=== PATIENT | male | born 1985 | race Asian ===

== ENCOUNTER 2019-04-04 23:01 | Inpatient (IN) | payer SELFPAY ==
[~2019-04-04] VITALS: Ht 180.3 cm; Wt 84.9 kg
[2019-04-04] MEDS ORDERED: AUGMENTIN 875-1 EAC1 ORAL (23:08)
[2019-04-04 23:10] VITALS: BP 144/91
--- NOTE | 2019-04-04 23:29 | Emergency Room Report ---
History of Present Illness General Chief Complaint: Pain Source: Patient Present Illness HPI 34-year-old male no past medical history no surgical history presents with left ear swelling x1 week, patient was seen in outside urgent care, now with worsening pain, no fevers no chills no chest pain no shortness of breath patient presents for evaluation, no aggravating or alleviating factors, pain is described as sharp/achy moderate severity, constant Allergies: Coded Allergies: No Known Allergies (Unverified , 04/04/19) Patient History Past Medical History: see triage record Reviewed Nursing Documentation: PMH: Agreed; PSxH: Agreed Nursing Documentation-PMH Past Medical History: No Stated History Review of Systems All Other Systems: negative except mentioned in HPI Physical Exam Vital Signs Date Time Temp Pulse Resp B/P (MAP) Pulse Ox O2 Delivery O2 Flow Rate FiO2 04/04/19 23:03 98.8 104 14 144/91 (108) 97 Room Air Sp02 EP Interpretation: reviewed, normal General Appearance: well appearing, no apparent distress, alert Head: normocephalic, atraumatic Eyes: bilateral eye PERRL, bilateral eye EOMI ENT: uvula midline, moist mucus membranes, other - Patient with swelling of the lobule of the left ear, along the base, with tenderness Neck: supple, thyroid normal, supple/symm/no masses Respiratory: lungs clear, no respiratory distress, no retraction, no accessory muscle use Cardiovascular #1: normal peripheral pulses, no edema, no gallop, no murmur, tachycardia Gastrointestinal: non tender, soft, no guarding, no rebound Musculoskeletal: normal inspection Neurologic: alert, oriented x3 Psychiatric: mood/affect normal Skin: no rash, warm/dry Medical Decision Making Diagnostic Impression: Primary Impression: Facial abscess ER Course 34-year-old male presents with more left facial pain near the ear, concerning for abscess versus cellulitis versus mastoiditis we will start IV antibiotics, labs show a leukocytosis, patient is tachycardic Will admit patient Patient admitted to Dr. Villarreal Laboratory Tests Test 04/04/19 23:50 White Blood Count 11.1 K/UL (4.8-10.8) H Red Blood Count 5.15 M/UL (4.70-6.10) Hemoglobin 15.2 G/DL (14.2-18.0) Hematocrit 43.4 % (42.0-52.0) Mean Corpuscular Volume 84 FL (80-99) Mean Corpuscular Hemoglobin 29.4 PG (27.0-31.0) Mean Corpuscular Hemoglobin Concent 35.0 G/DL (32.0-36.0) Red Cell Distribution Width 11.0 % (11.6-14.8) L Platelet Count 201 K/UL (150-450) Mean Platelet Volume 6.6 FL (6.5-10.1) Neutrophils (%) (Auto) 70.7 % (45.0-75.0) Lymphocytes (%) (Auto) 19.8 % (20.0-45.0) L Monocytes (%) (Auto) 8.0 % (1.0-10.0) Eosinophils (%) (Auto) 0.9 % (0.0-3.0) Basophils (%) (Auto) 0.6 % (0.0-2.0) Sodium Level 145 MMOL/L (136-145) Potassium Level 3.6 MMOL/L (3.5-5.1) Chloride Level 109 MMOL/L (98-107) H Carbon Dioxide Level 31 MMOL/L (21-32) Anion Gap 5 mmol/L (5-15) Blood Urea Nitrogen 12 mg/dL (7-18) Creatinine 0.9 MG/DL (0.55-1.30) Estimate Glomerular Filtration Rate > 60 mL/min (>60) Glucose Level 113 MG/DL (74-106) H Lactic Acid Level 1.10 mmol/L (0.4-2.0) Calcium Level 8.9 MG/DL (8.5-10.1) Phosphorus Level 4.0 MG/DL (2.5-4.9) Magnesium Level 2.0 MG/DL (1.8-2.4) Total Bilirubin 1.1 MG/DL (0.2-1.0) H Direct Bilirubin 0.2 MG/DL (0.0-0.3) Aspartate Amino Transferase (AST) 14 U/L (15-37) L Alanine Aminotransferase (ALT) 24 U/L (12-78) Alkaline Phosphatase 61 U/L (46-116) Creatine Kinase MB 0.6 NG/ML (0.0-3.6) Total Protein 6.9 G/DL (6.4-8.2) Albumin 3.6 G/DL (3.4-5.0) Globulin 3.3 g/dL Albumin/Globulin Ratio 1.1 (1.0-2.7) EKG Diagnostic Results EKG Time: 23:28 EP Interpretation: NSR rate 95, QTc 414, no acute ST elevations, normal axis Chest X-Ray Diagnostic Results Chest X-Ray Diagnostic Results : Chest X-Ray Ordered: Yes # of Views/Limited/Complete: 1 View Indication: Other - preop EP Interpretation: Yes Interpretation: no consolidation, no effusion, no pneumothorax, no acute cardiopulmonary disease Impression: No acute disease Electronically Signed by: Vivek Bell MD CT/MRI/US Diagnostic Results CT/MRI/US Diagnostic Results : Impression Preliminary Findings Only See Final Report For Complete Findings CT MAXILLOFACIAL: Bone: No facial fracture. Soft tissues: Orbits/globes are intact. No hematoma. There is soft tissue thickening and edema/infection in the left periauricular region (close to the parotid gland but appears to be outside of the gland) with underlying superficial 2 cm cystic process/abscess. Mastoids: Clear. External auditory canal and middle ears are clear bilaterally. Radiologist: Gera Dunham MD Study ready at 00:44 and initial results transmitted at 01:27 Last Vital Signs Date Time Temp Pulse Resp B/P (MAP) Pulse Ox O2 Delivery O2 Flow Rate FiO2 04/04/19 23:03 98.8 104 14 144/91 (108) 97 Room Air Disposition: ADMITTED INPATIENT Condition: Stable Vivek Bell MD Apr 04, 2019 23:29
[2019-04-04] MEDS ORDERED: Piperacillin/Tazobactam 3.375 GM in NS 110 ML IVPB ONE (23:30)
[2019-04-04] MEDS ORDERED: Isovue-300 100ml vial INJ PRN ×2 (23:30)
[2019-04-05 00:07] LABS: BASOPHILS % (AUTO) 0.6 % (0.0-2.0); EOSINOPHILS % (AUTO) 0.9 % (0.0-3.0); HEMATOCRIT 43.4 % (42.0-52.0); HEMOGLOBIN 15.2 G/DL (14.2-18.0); LYMPHOCYTES % (AUTO) 19.8 % (20.0-45.0); MEAN CORPUSCULAR VOLUME 84 FL (80-99); NEUTROPHILS % (AUTO) 70.7 % (45.0-75.0); PLATELET COUNT 201 K/UL (150-450); RED BLOOD COUNT 5.15 M/UL (4.70-6.10); WHITE BLOOD COUNT 11.1 K/UL (4.8-10.8)
[2019-04-05 00:20] LABS: ANION GAP 5 mmol/L (5-15); BLOOD UREA NITROGEN 12 mg/dL (7-18); CALCIUM 8.9 MG/DL (8.5-10.1); CARBON DIOXIDE 31 MMOL/L (21-32); CHLORIDE 109 MMOL/L (98-107); CREATININE 0.9 MG/DL (0.55-1.30); POTASSIUM 3.6 MMOL/L (3.5-5.1); SODIUM 145 MMOL/L (136-145)
[2019-04-05 00:31] LABS: ALANINE AMINOTRANSFERASE 24 U/L (12-78); ALBUMIN 3.6 G/DL (3.4-5.0); ALBUMIN/GLOBULIN RATIO 1.1 (1.0-2.7); ALKALINE PHOSPHATASE 61 U/L (46-116); ASPARTATE AMINO TRANSFERASE 14 U/L (15-37); BILIRUBIN,TOTAL 1.1 MG/DL (0.2-1.0); CKMB 0.6 NG/ML (0.0-3.6)
[2019-04-05 00:35] LABS: BILIRUBIN,DIRECT 0.2 MG/DL (0.0-0.3)
--- NOTE | 2019-04-05 01:28 | Diagnostic Imaging Report ---
Indication: Reason For Exam: PAIN Technique: No IV contrast, reason not stated Spiral acquisitions obtained through the bilateral temporal bones Multiplanar and high-resolution reconstructions were generated. Total dose length product 2387.3 mGycm. CTDIvol(s) 43.85,43.85 mGy. Radiation dose was minimized using automated exposure control Comparison: none Findings: In the subcutaneous fat superficial to the left parotid gland, at the inferior aspect of the oracle and anterior/inferior to the external auditory canal, there is an area of soft tissue thickening. This demonstrates peripheral high attenuation. There is a central area of lower attenuation which measures approximately 1 cm in diameter. There is also soft tissue thickening extending into the inferior oracle on the left. Bilaterally, the external auditory canals, tympanic membranes, middle ear ossicles, mastoid antrum, inner ear structures, internal auditory canals, and mastoids are all unremarkable. There is slight irregularity to the left mandibular head, possibly on the basis of degenerative change or degenerative remodeling. There is bilateral ethmoid sinus mucosal thickening. A small mucous retention cyst or polyp is seen in the right maxillary sinus. Impression: Abnormality of the soft tissues superficial to the left parotid gland within the subcutaneous fat as described. Differential considerations include cellulitis with central abscess, infected cyst, less likely tumor. Evaluation is limited in the absence of IV contrast. Correlate with clinical findings This agrees with the preliminary interpretation provided overnight by [facility] teleradiology service. The CT scanner at [facility] is accredited by the [employer] and the scans are performed using protocols designed to limit radiation exposure to as low as reasonably achievable to attain images of sufficient resolution adequate for diagnostic evaluation.
[2019-04-05 02:02] VITALS: BP 137/90
[2019-04-05 04:00] VITALS: BP 137/85
[2019-04-05 07:02] LABS: BASOPHILS % (AUTO) 0.6 % (0.0-2.0); EOSINOPHILS % (AUTO) 0.8 % (0.0-3.0); HEMATOCRIT 41.2 % (42.0-52.0); HEMOGLOBIN 14.1 G/DL (14.2-18.0); LYMPHOCYTES % (AUTO) 17.5 % (20.0-45.0); MEAN CORPUSCULAR VOLUME 85 FL (80-99); MONOCYTES % (AUTO) 7.1 % (1.0-10.0); PLATELET COUNT 196 K/UL (150-450); RED BLOOD COUNT 4.85 M/UL (4.70-6.10); WHITE BLOOD COUNT 11.8 K/UL (4.8-10.8)
[2019-04-05 07:18] LABS: ANION GAP 8 mmol/L (5-15); BLOOD UREA NITROGEN 12 mg/dL (7-18); CALCIUM 8.8 MG/DL (8.5-10.1); CARBON DIOXIDE 27 MMOL/L (21-32); CHLORIDE 110 MMOL/L (98-107); CREATININE 0.9 MG/DL (0.55-1.30); SODIUM 145 MMOL/L (136-145)
[2019-04-05 08:00] VITALS: BP 100/58
[2019-04-05] MEDS: HYDROcodone/Acetamin 5/325 tab ORAL PRN ×3 (08:59→21:10)
[2019-04-05] MEDS: Vancomycin 1gm/D5W 275ml IVPB SCH ×4 (08:59→17:06)
--- NOTE | 2019-04-05 11:06 | Consultation ---
History of Present Illness General Date patient seen: Apr 05, 2019 Reason for Hospitalization: Pain Present Illness HPI This is a 34-year-old male otherwise healthy who presented to the emergency department at [facility] complaining of worsening left sided facial swelling and pain. States that he first noted discomfort/abnormality approximately few months ago but over the past 1 week is identified significant swelling tenderness and discomfort. Went to outside facility and was told to come the emergency room for evaluation. In emergency department identified to have low-grade fevers, leukocytosis, CT scan with left preauricular cellulitis. Surgery called to evaluate and assist with care. Patient seen, patient evaluated, chart reviewed Allergies: Coded Allergies: No Known Allergies (Unverified , 04/04/19) Medication History Scheduled Amoxicillin/Potassium Clav 875-125* (Augmentin 875-125 Tablet*), 1 TAB ORAL TWICE A DAY, (Reported) Patient History History Provided By: Patient, Medical Record, PMD Healthcare decision maker Resuscitation status Full Code Advanced Directive on File No Past Medical/Surgical History Past Medical/Surgical History: (1) Facial abscess (2) Mastoiditis Review of Systems Review of Symptoms General ROS: no weight loss or fever Psychological ROS: no depression or mood changes, no memory loss Ophthalmic ROS: no visual changes or eye irritation ENT ROS: no nasal congestion, hearing loss, dizziness Allergy and Immunology ROS: no allergic symptoms or urticaria Hematological and Lymphatic ROS: no swollen glands, unusual bleeding or bruising Endocrine ROS: no polyuria, polydipsia, weight changes, temperature intolerance Respiratory ROS: no cough, shortness of breath, or wheezing Cardiovascular ROS: no chest pain or dyspnea on exertion Gastrointestinal ROS: denies abdominal pain, no bright red blood in stool. Musculoskeletal ROS: no myalgias or arthralgias Neurological ROS: no TIA or stroke symptoms Dermatological ROS: no new or changing skin lesions, rashes or pruritis Physical Exam Physical Exam General appearance: alert, cooperative, no distress, appears stated age Head: Left-sided facial edema and erythema and tenderness, without obvious abnormality, atraumatic Eyes: conjunctivae/corneas clear. PERRL, EOM's intact. Fundi benign Throat: Lips, mucosa, and tongue normal. Teeth and gums normal Neck: supple, symmetrical, trachea midline, no adenopathy, thyroid: not enlarged, symmetric, no tenderness/mass/nodules, no carotid bruit and no JVD Lungs: clear to auscultation bilaterally Heart: regular rate and rhythm, S1, S2 normal, no murmur, click, rub or gallop Abdomen: soft, non-tender. Bowel sounds normal. No masses, no organomegaly Extremities: extremities normal, atraumatic, no cyanosis or edema Pulses: 2+ and symmetric Skin: Skin color, texture, turgor normal. No rashes or lesions Neurologic: Grossly normal Last 24 Hour Vital Signs Date Time Temp Pulse Resp B/P (MAP) Pulse Ox O2 Delivery O2 Flow Rate FiO2 04/05/19 09:29 99.5 04/05/19 09:00 Room Air 04/05/19 08:00 99.5 81 19 100/58 (72) 95 04/05/19 04:00 98.4 79 17 137/85 (102) 97 04/05/19 02:21 Room Air 04/05/19 02:02 98.6 85 16 137/90 (106) 97 04/05/19 01:45 98.8 78 14 144/91 97 Room Air 04/04/19 23:10 98.8 78 14 144/91 97 Room Air 04/04/19 23:03 98.8 104 14 144/91 (108) 97 Room Air Intake and Output 04/04/19 04/05/19 19:00 07:00 Intake Total 140 ml Balance 140 ml Intake IV Total 140 ml # Voids 1 Laboratory Tests Test 04/04/19 23:50 04/05/19 05:38 White Blood Count 11.1 K/UL (4.8-10.8) H 11.8 K/UL (4.8-10.8) H Red Blood Count 5.15 M/UL (4.70-6.10) 4.85 M/UL (4.70-6.10) Hemoglobin 15.2 G/DL (14.2-18.0) 14.1 G/DL (14.2-18.0) L Hematocrit 43.4 % (42.0-52.0) 41.2 % (42.0-52.0) L Mean Corpuscular Volume 84 FL (80-99) 85 FL (80-99) Mean Corpuscular Hemoglobin 29.4 PG (27.0-31.0) 29.2 PG (27.0-31.0) Mean Corpuscular Hemoglobin Concent 35.0 G/DL (32.0-36.0) 34.3 G/DL (32.0-36.0) Red Cell Distribution Width 11.0 % (11.6-14.8) L 11.0 % (11.6-14.8) L Platelet Count 201 K/UL (150-450) 196 K/UL (150-450) Mean Platelet Volume 6.6 FL (6.5-10.1) 7.7 FL (6.5-10.1) Neutrophils (%) (Auto) 70.7 % (45.0-75.0) 74.0 % (45.0-75.0) Lymphocytes (%) (Auto) 19.8 % (20.0-45.0) L 17.5 % (20.0-45.0) L Monocytes (%) (Auto) 8.0 % (1.0-10.0) 7.1 % (1.0-10.0) Eosinophils (%) (Auto) 0.9 % (0.0-3.0) 0.8 % (0.0-3.0) Basophils (%) (Auto) 0.6 % (0.0-2.0) 0.6 % (0.0-2.0) Sodium Level 145 MMOL/L (136-145) 145 MMOL/L (136-145) Potassium Level 3.6 MMOL/L (3.5-5.1) 4.0 MMOL/L (3.5-5.1) Chloride Level 109 MMOL/L (98-107) H 110 MMOL/L (98-107) H Carbon Dioxide Level 31 MMOL/L (21-32) 27 MMOL/L (21-32) Anion Gap 5 mmol/L (5-15) 8 mmol/L (5-15) Blood Urea Nitrogen 12 mg/dL (7-18) 12 mg/dL (7-18) Creatinine 0.9 MG/DL (0.55-1.30) 0.9 MG/DL (0.55-1.30) Estimat Glomerular Filtration Rate > 60 mL/min (>60) > 60 mL/min (>60) Glucose Level 113 MG/DL (74-106) H 101 MG/DL (74-106) Lactic Acid Level 1.10 mmol/L (0.4-2.0) Calcium Level 8.9 MG/DL (8.5-10.1) 8.8 MG/DL (8.5-10.1) Phosphorus Level 4.0 MG/DL (2.5-4.9) Magnesium Level 2.0 MG/DL (1.8-2.4) Total Bilirubin 1.1 MG/DL (0.2-1.0) H Direct Bilirubin 0.2 MG/DL (0.0-0.3) Aspartate Amino Transf (AST/SGOT) 14 U/L (15-37) L Alanine Aminotransferase (ALT/SGPT) 24 U/L (12-78) Alkaline Phosphatase 61 U/L (46-116) Creatine Kinase MB 0.6 NG/ML (0.0-3.6) Total Protein 6.9 G/DL (6.4-8.2) Albumin 3.6 G/DL (3.4-5.0) Globulin 3.3 g/dL Albumin/Globulin Ratio 1.1 (1.0-2.7) Height (Feet): 5 Height (Inches): 11.00 Weight (Pounds): 195 Medications Current Medications Medications (Trade) Dose Ordered Sig/Nikolai Route PRN Reason Start Time Stop Time Status Last Admin Dose Admin Acetaminophen (Tylenol) 650 mg Q4H PRN ORAL Mild Pain/Temp > 100.5 04/05/19 03:45 05/05/19 03:44 Acetaminophen/ Hydrocodone Bitart ([place] 5/325) 1 tab Q6H PRN ORAL For Pain 04/05/19 03:45 04/12/19 03:44 04/05/19 08:59 Iopamidol (Isovue-300 100ml) 100 ml NOW PRN INJ Radiology Procedure 04/04/19 23:30 04/06/19 23:21 Iopamidol (Isovue-300 100ml) 100 ml NOW PRN INJ Radiology Procedure 04/04/19 23:30 04/06/19 23:28 Sodium Chloride 1,000 ml @ 70 mls/hr [id number] IV 04/05/19 04:00 05/05/19 03:59 04/05/19 04:06 Vancomycin HCl (Vanco rx to dose) 1 ea DAILY PRN MISC Per rx protocol 04/05/19 07:30 05/05/19 07:29 Vancomycin HCl 1 gm/Dextrose 275 ml @ 183.708 mls/hr Q8H IVPB 04/05/19 09:00 04/10/19 08:59 04/05/19 08:59 Assessment/Plan Problem List: (1) Facial abscess Assessment & Plan: CT MAXILLOFACIAL: Bone: No facial fracture. Soft tissues: Orbits/globes are intact. No hematoma. There is soft tissue thickening and edema/infection in the left periauricular region (close to the parotid gland but appears to be outside of the gland) with underlying superficial 2 cm cystic process/abscess. Mastoids: Clear. External auditory canal and middle ears are clear bilaterally. As noted on the CT the auditory canal and the middle ear is clear bilaterally, the left preauricular region close to the parotid broadside of it has a superficial cystic process versus abscess. On examination patient with cellulitis in the left preauricular area that is tender but no drainage. Low- grade fevers and leukocytosis. No acute general surgery intervention recommended at this time Recommend IV antibiotics and warm compress If possible ENT evaluation Trend labs Thank you for allowing me to participate in patient's care will follow with recommendations ICD Codes: L02.01 - Cutaneous abscess of face SNOMED: 061591884 (2) Mastoiditis ICD Codes: H70.90 - Unspecified mastoiditis, unspecified ear SNOMED: [id number] Vu Murphy Apr 05, 2019 11:06
[2019-04-05 12:00] VITALS: BP 127/79
--- NOTE | 2019-04-05 15:03 | Diagnostic Imaging Report ---
. Indication: Cough Technique: One view of the chest Comparison: none Findings: Lungs and pleural spaces are clear. Heart size is normal. Incidentally noted is a right clavicular fracture deformity Impression: No acute process
[2019-04-05 16:00] VITALS: BP 133/58
--- NOTE | 2019-04-05 18:48 | Cardiology Report ---
APPROVED REPORT EKG Measurement Heart [id number] Normal sinus rhythm Normal ECG
[2019-04-05 20:00] VITALS: BP 122/72
--- NOTE | 2019-04-05 23:15 | Consultation ---
DATE OF CONSULTATION: 04/05/2019 INFECTIOUS DISEASE CONSULTATION CONSULTING PHYSICIAN: Tavon Stapleton M.D. PRIMARY ATTENDING PHYSICIAN: Daisy Villarreal M.D. REASON FOR CONSULT: Facial abscess and cellulitis. HISTORY OF PRESENT ILLNESS: This is a 34-year-old male, admitted yesterday complaining of pain and swelling on the left side of the face, mainly in the left ear. The patient also had subjective fever at home. The swelling is going on for one week, was seen in an outside urgent clinic for worsening. PAST MEDICAL HISTORY: Insignificant. PAST SURGICAL HISTORY: The patient also had no past surgical history. MEDICATIONS: Getting vancomycin. Got a dose of Zosyn in the ER, sodium chloride, and Victoria. ALLERGIES: No known drug allergies. SOCIAL HISTORY: Smokes half pack of cigarettes daily. Denies alcohol or IV drug abuse. Works in a factory. . [place] in origin. REVIEW OF SYSTEMS: Pain in the left ear and swelling of the left ear. No nausea. No vomiting. No difficulty swallowing. No tooth pain. No other symptoms. PHYSICAL EXAMINATION: VITAL SIGNS: Temperature 98.7, pulse 71, and blood pressure 127/79. GENERAL APPEARANCE: No acute distress. HEAD AND NECK: Burns conjunctivae. Has swelling of the left earlobe with an area of redness and tenderness in the posterior inferior ear lobe. No open wound and no discharge. HEART: Normal rate. LUNGS: Clear. ABDOMEN: Soft and nontender. EXTREMITIES: Has no edema. LABORATORY AND DIAGNOSTIC DATA: WBC 11.8, hemoglobin 14.1, hematocrit 41.2, and platelets 196,000. Sodium 145, potassium 4, chloride 110, bicarbonate 27, BUN 12, creatinine 0.9, and glucose is 101. CT scan of the internal auditory shows mastoids & auditory canal and middle ears are normal , superficial 2 cm abscess. IMPRESSION: Cutaneous abscess of ear. The patient has nicotine dependence. RECOMMENDATIONS: Continue IV vancomycin. Surgical evaluation for abscess. Check HIV status of the patient. At the end of my exam, I thank Dr. Villarreal for involving me in the care of this patient. Tavon Stapleton M.D. DR: MICHELE JOB#: [id number] CC: HECTOR
[2019-04-06] VITALS (7 sets, daily range): BP systolic 114–133; BP diastolic 60–83
[2019-04-06] MEDS: Vancomycin 1gm/D5W 275ml IVPB SCH ×2 (00:51)
--- NOTE | 2019-04-06 03:30 | History and Physical Report ---
DATE OF ADMISSION: 04/04/2019 HISTORY OF PRESENT ILLNESS: The patient is admitted with left facial abscess near the left ear, started on antibiotics per the outpatient treatment, admitted for inpatient IV antibiotics. The patient states it started about a week ago along the left ear, subsequently diagnosed with possible mastoiditis. The patient had some chills as well. PAST MEDICAL HISTORY: None. PAST SURGICAL HISTORY: None. SOCIAL HISTORY: History of smoking, history of marijuana, history of alcohol abuse. MEDICATIONS: None. FAMILY HISTORY: Noncontributory. REVIEW OF SYSTEMS: HEENT: Denies headaches. RESPIRATORY: Denies shortness of breath. Denies cough. CARDIOVASCULAR: Denies chest pain. GASTROINTESTINAL: Denies nausea, vomiting, diarrhea. EXTREMITIES: Denies any pain. CENTRAL NERVOUS SYSTEM: Denies any change in vision or speech pattern. Does have around the left ear, left facial side close to the ear, pain for about a week. PHYSICAL EXAMINATION: VITAL SIGNS: Temperature 98.2, pulse 78, and blood pressure 133/70. HEENT: PERRLA. The patient has edema, tender to touch around close to the left ear and face, behind the mastoid on the left, it is tender to touch and red and warm to touch. NECK: Supple. No lymphadenopathy. CHEST: Clear to auscultation. CARDIOVASCULAR: Regular rate and rhythm. No murmurs or extra sounds. GASTROINTESTINAL: Soft, nontender, nondistended. No organomegaly. EXTREMITIES: No edema. Moves all four extremities. NEUROLOGIC: Sensory is intact to touch. Reflexes equal on both sides. Moves all four extremities. LABORATORY DATA: Essentially normal. ASSESSMENT AND PLAN: Left ear infection, cellulitis/mastoiditis. I have asked Dr. Murphy and Dr. Tavon Stapleton to see the patient for IV antibiotics and possible beading as needed. Antibiotics per Dr. Tavon Stapleton. Daisy Villarreal M.D. DR: MARTINA JOB#: [id number] CC:
[2019-04-06 08:38] LABS: BASOPHILS % (AUTO) 0.6 % (0.0-2.0); EOSINOPHILS % (AUTO) 0.3 % (0.0-3.0); HEMATOCRIT 44.5 % (42.0-52.0); HEMOGLOBIN 15.1 G/DL (14.2-18.0); LYMPHOCYTES % (AUTO) 13.5 % (20.0-45.0); MEAN CORPUSCULAR VOLUME 85 FL (80-99); MONOCYTES % (AUTO) 5.2 % (1.0-10.0); NEUTROPHILS % (AUTO) 80.4 % (45.0-75.0); PLATELET COUNT 212 K/UL (150-450); RED BLOOD COUNT 5.22 M/UL (4.70-6.10); RED CELL DISTRIBUTION WIDTH 10.7 % (11.6-14.8); WHITE BLOOD COUNT 11.8 K/UL (4.8-10.8)
[2019-04-06 08:53] LABS: ANION GAP 10 mmol/L (5-15); BLOOD UREA NITROGEN 7 mg/dL (7-18); CARBON DIOXIDE 28 MMOL/L (21-32); CHLORIDE 105 MMOL/L (98-107); CREATININE 0.9 MG/DL (0.55-1.30); SODIUM 143 MMOL/L (136-145)
[2019-04-06] MEDS: HYDROcodone/Acetamin 5/325 tab ORAL PRN ×3 (09:39→23:57)
[2019-04-06] MEDS: Vancomycin 1.25gm/NS Premix IVPB SCH ×2 (10:10→21:46)
--- NOTE | 2019-04-06 12:17 | Infectious Diseases Prog Note ---
Assessment/Plan Assessment/Plan IMPRESSION: Cutaneous phegmons abscess of face near left ear. Facial cellulitis extending to upper neck nicotine dependence. RECOMMENDATIONS: Continue IV vancomycin Case was D/W surgeon yesterday Subjective ROS Limited/Unobtainable: No Constitutional: Reports: no symptoms, other - feels better HEENT: Reports: other - decreased pain near left ear Respiratory: Reports: productive cough Cardiovascular: Reports: no symptoms Gastrointestinal/Abdominal: Reports: no symptoms Genitourinary: Reports: no symptoms Allergies: Coded Allergies: No Known Allergies (Unverified , 04/04/19) Objective Vital Signs Last 24 Hour Vital Signs Date Time Temp Pulse Resp B/P (MAP) Pulse Ox O2 Delivery O2 Flow Rate FiO2 04/06/19 12:00 99.9 72 20 133/60 (84) 100 04/06/19 10:09 100.0 04/06/19 09:34 100.0 83 20 122/81 (95) 100 04/06/19 09:00 Room Air 04/06/19 08:00 100.0 83 20 122/81 (95) 100 04/06/19 04:00 98.2 80 20 121/75 (90) 99 04/06/19 00:00 98.3 83 22 124/74 (91) 99 04/05/19 20:42 Room Air 04/05/19 20:00 98.2 84 21 122/72 (89) 98 04/05/19 16:00 97.1 91 20 133/58 (83) 99 Height (Feet): 5 Height (Inches): 11.00 Weight (Pounds): 195 General Appearance: no acute distress HEENT: mucous membranes moist, other - left ear & parotid area swelling, erythema & tenderness Respiratory/Chest: lungs clear Cardiovascular: normal rate Abdomen: soft, non tender Extremities: no edema Neurologic/Psychiatric: alert, oriented x 3, responsive, normal mood/affect Laboratory Tests Test 04/06/19 08:00 White Blood Count 11.8 K/UL (4.8-10.8) H Red Blood Count 5.22 M/UL (4.70-6.10) Hemoglobin 15.1 G/DL (14.2-18.0) Hematocrit 44.5 % (42.0-52.0) Mean Corpuscular Volume 85 FL (80-99) Mean Corpuscular Hemoglobin 28.9 PG (27.0-31.0) Mean Corpuscular Hemoglobin Concent 33.9 G/DL (32.0-36.0) Red Cell Distribution Width 10.7 % (11.6-14.8) L Platelet Count 212 K/UL (150-450) Mean Platelet Volume 6.7 FL (6.5-10.1) Neutrophils (%) (Auto) 80.4 % (45.0-75.0) H Lymphocytes (%) (Auto) 13.5 % (20.0-45.0) L Monocytes (%) (Auto) 5.2 % (1.0-10.0) Eosinophils (%) (Auto) 0.3 % (0.0-3.0) Basophils (%) (Auto) 0.6 % (0.0-2.0) Erythrocyte Sedimentation Rate 14 MM/HR (0-15) Sodium Level 143 MMOL/L (136-145) Potassium Level 4.0 MMOL/L (3.5-5.1) Chloride Level 105 MMOL/L (98-107) Carbon Dioxide Level 28 MMOL/L (21-32) Anion Gap 10 mmol/L (5-15) Blood Urea Nitrogen 7 mg/dL (7-18) Creatinine 0.9 MG/DL (0.55-1.30) Estimat Glomerular Filtration Rate > 60 mL/min (>60) Glucose Level 126 MG/DL (74-106) H Calcium Level 9.0 MG/DL (8.5-10.1) C-Reactive Protein, Quantitative 5.2 mg/dL (0.00-0.90) H Vancomycin Level Trough 8.1 ug/mL (5.0-12.0) HIV (1&2) Antibody Rapid Negative (NEGATIVE) Current Medications Medications (Trade) Dose Ordered Sig/Nikolai Route PRN Reason Start Time Stop Time Status Last Admin Dose Admin Acetaminophen (Tylenol) 650 mg Q4H PRN ORAL Mild Pain/Temp > 100.5 04/05/19 03:45 05/05/19 03:44 Acetaminophen/ Hydrocodone Bitart ([place] 5/325) 1 tab Q6H PRN ORAL For Pain 04/05/19 03:45 04/12/19 03:44 04/06/19 09:39 Iopamidol (Isovue-300 100ml) 100 ml NOW PRN INJ Radiology Procedure 04/04/19 23:30 04/06/19 23:21 Iopamidol (Isovue-300 100ml) 100 ml NOW PRN INJ Radiology Procedure 04/04/19 23:30 04/06/19 23:28 Sodium Chloride 1,000 ml @ 70 mls/hr [id number] IV 04/05/19 04:00 05/05/19 03:59 04/06/19 09:43 Vancomycin HCl (Vanco rx to dose) 1 ea DAILY PRN MISC Per rx protocol 04/05/19 07:30 05/05/19 07:29 Vancomycin/Sodium Chloride 275 ml @ 183.333 mls/hr Q8HR IVPB 04/06/19 10:30 04/11/19 10:29 04/06/19 10:10 Tavon Stapleton MD Apr 06, 2019 12:17
--- NOTE | 2019-04-06 12:32 | Surgery Progress Note ---
Surgery Progress Note Subjective Additional Comments low grade fevers leukocytosis states feels better Objective Last 24 Hour Vital Signs Date Time Temp Pulse Resp B/P (MAP) Pulse Ox O2 Delivery O2 Flow Rate FiO2 04/06/19 12:00 99.9 72 20 133/60 (84) 100 04/06/19 10:09 100.0 04/06/19 09:34 100.0 83 20 122/81 (95) 100 04/06/19 09:00 Room Air 04/06/19 08:00 100.0 83 20 122/81 (95) 100 04/06/19 04:00 98.2 80 20 121/75 (90) 99 04/06/19 00:00 98.3 83 22 124/74 (91) 99 04/05/19 20:42 Room Air 04/05/19 20:00 98.2 84 21 122/72 (89) 98 04/05/19 16:00 97.1 91 20 133/58 (83) 99 I&O Intake and Output 04/05/19 04/06/19 19:00 07:00 Intake Total 1221.124 ml 1560 ml Balance 1221.124 ml 1560 ml Intake Oral 720 ml IV Total 1221.124 ml 840 ml # Voids 3 Cardiovascular: RSR Respiratory: clear Abdomen: soft, non-tender, present bowel sounds Extremities: no edema, no tenderness, no cyanosis Laboratory Tests Test 04/06/19 08:00 White Blood Count 11.8 K/UL (4.8-10.8) H Red Blood Count 5.22 M/UL (4.70-6.10) Hemoglobin 15.1 G/DL (14.2-18.0) Hematocrit 44.5 % (42.0-52.0) Mean Corpuscular Volume 85 FL (80-99) Mean Corpuscular Hemoglobin 28.9 PG (27.0-31.0) Mean Corpuscular Hemoglobin Concent 33.9 G/DL (32.0-36.0) Red Cell Distribution Width 10.7 % (11.6-14.8) L Platelet Count 212 K/UL (150-450) Mean Platelet Volume 6.7 FL (6.5-10.1) Neutrophils (%) (Auto) 80.4 % (45.0-75.0) H Lymphocytes (%) (Auto) 13.5 % (20.0-45.0) L Monocytes (%) (Auto) 5.2 % (1.0-10.0) Eosinophils (%) (Auto) 0.3 % (0.0-3.0) Basophils (%) (Auto) 0.6 % (0.0-2.0) Erythrocyte Sedimentation Rate 14 MM/HR (0-15) Sodium Level 143 MMOL/L (136-145) Potassium Level 4.0 MMOL/L (3.5-5.1) Chloride Level 105 MMOL/L (98-107) Carbon Dioxide Level 28 MMOL/L (21-32) Anion Gap 10 mmol/L (5-15) Blood Urea Nitrogen 7 mg/dL (7-18) Creatinine 0.9 MG/DL (0.55-1.30) Estimat Glomerular Filtration Rate > 60 mL/min (>60) Glucose Level 126 MG/DL (74-106) H Calcium Level 9.0 MG/DL (8.5-10.1) C-Reactive Protein, Quantitative 5.2 mg/dL (0.00-0.90) H Vancomycin Level Trough 8.1 ug/mL (5.0-12.0) HIV (1&2) Antibody Rapid Negative (NEGATIVE) Plan Problems: (1) Facial abscess Assessment & Plan: CT MAXILLOFACIAL: Bone: No facial fracture. Soft tissues: Orbits/globes are intact. No hematoma. There is soft tissue thickening and edema/infection in the left periauricular region (close to the parotid gland but appears to be outside of the gland) with underlying superficial 2 cm cystic process/abscess. Mastoids: Clear. External auditory canal and middle ears are clear bilaterally. As noted on the CT the auditory canal and the middle ear is clear bilaterally, the left preauricular region close to the parotid broadside of it has a superficial cystic process versus abscess. On examination patient with cellulitis in the left preauricular area that is tender but no drainage. Low- grade fevers and leukocytosis. No acute general surgery intervention recommended at this time Recommend IV antibiotics and warm compress If possible ENT evaluation Trend labs Thank you for allowing me to participate in patient's care will follow with recommendations (2) Mastoiditis Vu Murphy Apr 06, 2019 12:32
--- NOTE | 2019-04-06 20:47 | General Progress Note ---
Assessment/Plan Problem List: (1) Facial abscess ICD Codes: L02.01 - Cutaneous abscess of face SNOMED: 122772723 (2) Mastoiditis ICD Codes: H70.90 - Unspecified mastoiditis, unspecified ear SNOMED: 46836929 Status: progressing Assessment/Plan: iv abx pe id mastoditis continue w iv abx afebrile Subjective ROS Limited/Unobtainable: Yes Constitutional: Reports: no symptoms Allergies: Coded Allergies: No Known Allergies (Unverified , 04/04/19) Objective Last 24 Hour Vital Signs Date Time Temp Pulse Resp B/P (MAP) Pulse Ox O2 Delivery O2 Flow Rate FiO2 04/06/19 17:30 99.9 04/06/19 16:00 99.1 85 20 114/76 (89) 97 04/06/19 12:00 99.9 72 20 133/60 (84) 100 04/06/19 09:34 100.0 83 20 122/81 (95) 100 04/06/19 09:00 Room Air 04/06/19 08:00 100.0 83 20 122/81 (95) 100 04/06/19 04:00 98.2 80 20 121/75 (90) 99 04/06/19 00:00 98.3 83 22 124/74 (91) 99 Intake and Output 04/05/19 04/06/19 19:00 07:00 Intake Total 1221.124 ml 1560 ml Balance 1221.124 ml 1560 ml Intake Oral 720 ml IV Total 1221.124 ml 840 ml # Voids 3 Laboratory Tests 04/06/19 08:00: White Blood Count 11.8H, Red Blood Count 5.22, Hemoglobin 15.1, Hematocrit 44.5 , Mean Corpuscular Volume 85, Mean Corpuscular Hemoglobin 28.9, Mean Corpuscular Hemoglobin Concent 33.9, Red Cell Distribution Width 10.7L, Platelet Count 212, Mean Platelet Volume 6.7, Neutrophils (%) (Auto) 80.4H, Lymphocytes (%) (Auto) 13.5L, Monocytes (%) (Auto) 5.2, Eosinophils (%) (Auto) 0.3, Basophils (%) (Auto) 0.6, Erythrocyte Sedimentation Rate 14, Sodium Level 143, Potassium Level 4.0, Chloride Level 105, Carbon Dioxide Level 28, Anion Gap 10, Blood Urea Nitrogen 7, Creatinine 0.9, Estimat Glomerular Filtration Rate > 60, Glucose Level 126H, Calcium Level 9.0, C-Reactive Protein, Quantitative 5.2H, Vancomycin Level Trough 8.1, HIV (1&2) Antibody Rapid Negative Height (Feet): 5 Height (Inches): 11.00 Weight (Pounds): 195 Neck: supple Cardiovascular: normal rate Respiratory/Chest: lungs clear Abdomen: soft Daisy Villarreal MD Apr 06, 2019 20:47
[2019-04-07] VITALS: BP 115/72
[2019-04-07 04:00] VITALS: BP 121/63
[2019-04-07] MEDS: Vancomycin 1.25gm/NS Premix IVPB SCH ×4 (05:59→22:07)
[2019-04-07] MEDS: HYDROcodone/Acetamin 5/325 tab ORAL PRN ×2 (05:59→19:58)
[2019-04-07 07:22] LABS: BASOPHILS % (AUTO) 0.6 % (0.0-2.0); HEMATOCRIT 40.4 % (42.0-52.0); LYMPHOCYTES % (AUTO) 17.8 % (20.0-45.0); MEAN CORPUSCULAR VOLUME 85 FL (80-99); MONOCYTES % (AUTO) 6.5 % (1.0-10.0); PLATELET COUNT 213 K/UL (150-450); RED BLOOD COUNT 4.76 M/UL (4.70-6.10); RED CELL DISTRIBUTION WIDTH 10.5 % (11.6-14.8); WHITE BLOOD COUNT 9.9 K/UL (4.8-10.8)
[2019-04-07 07:53] VITALS: BP 107/77
[2019-04-07 07:57] LABS: ANION GAP 7 mmol/L (5-15); BLOOD UREA NITROGEN 11 mg/dL (7-18); CARBON DIOXIDE 29 MMOL/L (21-32); CHLORIDE 104 MMOL/L (98-107); CREATININE 0.8 MG/DL (0.55-1.30); SODIUM 140 MMOL/L (136-145)
[2019-04-07 12:00] VITALS: BP 126/83
--- NOTE | 2019-04-07 13:38 | Infectious Diseases Prog Note ---
Assessment/Plan Assessment/Plan IMPRESSION: Cutaneous abscess of face near left ear. Facial cellulitis extending to upper neck nicotine dependence. RECOMMENDATIONS: Continue IV vancomycin I & D was scheduled Subjective ROS Limited/Unobtainable: Yes Constitutional: Reports: no symptoms HEENT: Reports: other - pain in left ear area Cardiovascular: Reports: no symptoms Gastrointestinal/Abdominal: Reports: no symptoms Allergies: Coded Allergies: No Known Allergies (Unverified , 04/04/19) Objective Vital Signs Last 24 Hour Vital Signs Date Time Temp Pulse Resp B/P (MAP) Pulse Ox O2 Delivery O2 Flow Rate FiO2 04/07/19 12:00 97.9 65 20 126/83 (97) 99 04/07/19 08:52 Room Air 04/07/19 07:53 97.9 70 20 107/77 (87) 99 04/07/19 04:00 97.9 69 20 121/63 (82) 99 04/07/19 00:00 98.2 76 18 115/72 (86) 96 04/06/19 21:00 Room Air 04/06/19 20:00 99.5 76 18 133/83 (100) 96 04/06/19 17:30 99.9 04/06/19 16:00 99.1 85 20 114/76 (89) 97 Height (Feet): 5 Height (Inches): 11.00 Weight (Pounds): 195 General Appearance: no acute distress HEENT: mucous membranes moist Respiratory/Chest: lungs clear Cardiovascular: normal rate Abdomen: soft, non tender Extremities: no edema Skin: other - abscess near left lower ear Neurologic/Psychiatric: alert, oriented x 3, responsive Microbiology Date/Time Source Procedure Growth Status 04/04/19 23:50 Blood Blood Culture - Preliminary NO GROWTH AFTER 48 HOURS Resulted 04/04/19 23:50 Blood Blood Culture - Preliminary NO GROWTH AFTER 48 HOURS Resulted Laboratory Tests Test 04/07/19 06:50 White Blood Count 9.9 K/UL (4.8-10.8) Red Blood Count 4.76 M/UL (4.70-6.10) Hemoglobin 14.0 G/DL (14.2-18.0) L Hematocrit 40.4 % (42.0-52.0) L Mean Corpuscular Volume 85 FL (80-99) Mean Corpuscular Hemoglobin 29.3 PG (27.0-31.0) Mean Corpuscular Hemoglobin Concent 34.5 G/DL (32.0-36.0) Red Cell Distribution Width 10.5 % (11.6-14.8) L Platelet Count 213 K/UL (150-450) Mean Platelet Volume 6.2 FL (6.5-10.1) L Neutrophils (%) (Auto) 74.0 % (45.0-75.0) Lymphocytes (%) (Auto) 17.8 % (20.0-45.0) L Monocytes (%) (Auto) 6.5 % (1.0-10.0) Eosinophils (%) (Auto) 1.0 % (0.0-3.0) Basophils (%) (Auto) 0.6 % (0.0-2.0) Sodium Level 140 MMOL/L (136-145) Potassium Level 4.0 MMOL/L (3.5-5.1) Chloride Level 104 MMOL/L (98-107) Carbon Dioxide Level 29 MMOL/L (21-32) Anion Gap 7 mmol/L (5-15) Blood Urea Nitrogen 11 mg/dL (7-18) Creatinine 0.8 MG/DL (0.55-1.30) Estimat Glomerular Filtration Rate > 60 mL/min (>60) Glucose Level 106 MG/DL (74-106) Calcium Level 9.0 MG/DL (8.5-10.1) Current Medications Medications (Trade) Dose Ordered Sig/Nikolai Route PRN Reason Start Time Stop Time Status Last Admin Dose Admin Acetaminophen (Tylenol) 650 mg Q4H PRN ORAL Mild Pain/Temp > 100.5 04/05/19 03:45 05/05/19 03:44 Acetaminophen/ Hydrocodone Bitart ([place] 5/325) 1 tab Q6H PRN ORAL For Pain 04/05/19 03:45 04/12/19 03:44 04/07/19 05:59 Sodium Chloride 1,000 ml @ 70 mls/hr [id number] IV 04/05/19 04:00 05/05/19 03:59 04/07/19 13:21 Vancomycin HCl (Vanco rx to dose) 1 ea DAILY PRN MISC Per rx protocol 04/05/19 07:30 05/05/19 07:29 Vancomycin/Sodium Chloride 275 ml @ 183.333 mls/hr Q8HR IVPB 04/06/19 10:30 04/11/19 10:29 04/07/19 05:59 Tavon Stapleton MD Apr 07, 2019 13:38
--- NOTE | 2019-04-07 15:47 | Surgery Progress Note ---
Surgery Progress Note Subjective Symptoms: improved, tolerating diet, passing flatus, pain decreased Objective Last 24 Hour Vital Signs Date Time Temp Pulse Resp B/P (MAP) Pulse Ox O2 Delivery O2 Flow Rate FiO2 04/07/19 12:00 97.9 65 20 126/83 (97) 99 04/07/19 08:52 Room Air 04/07/19 07:53 97.9 70 20 107/77 (87) 99 04/07/19 04:00 97.9 69 20 121/63 (82) 99 04/07/19 00:00 98.2 76 18 115/72 (86) 96 04/06/19 21:00 Room Air 04/06/19 20:00 99.5 76 18 133/83 (100) 96 04/06/19 17:30 99.9 04/06/19 16:00 99.1 85 20 114/76 (89) 97 I&O Intake and Output 04/06/19 04/07/19 19:00 07:00 Intake Total 1496.666 ml 1158.333 ml Balance 1496.666 ml 1158.333 ml Intake Oral 500 ml IV Total 996.666 ml 1158.333 ml # Voids 4 1 Cardiovascular: RSR Respiratory: clear Abdomen: soft, flat, non-tender, present bowel sounds Extremities: no tenderness, no cyanosis Laboratory Tests Test 04/07/19 06:50 White Blood Count 9.9 K/UL (4.8-10.8) Red Blood Count 4.76 M/UL (4.70-6.10) Hemoglobin 14.0 G/DL (14.2-18.0) L Hematocrit 40.4 % (42.0-52.0) L Mean Corpuscular Volume 85 FL (80-99) Mean Corpuscular Hemoglobin 29.3 PG (27.0-31.0) Mean Corpuscular Hemoglobin Concent 34.5 G/DL (32.0-36.0) Red Cell Distribution Width 10.5 % (11.6-14.8) L Platelet Count 213 K/UL (150-450) Mean Platelet Volume 6.2 FL (6.5-10.1) L Neutrophils (%) (Auto) 74.0 % (45.0-75.0) Lymphocytes (%) (Auto) 17.8 % (20.0-45.0) L Monocytes (%) (Auto) 6.5 % (1.0-10.0) Eosinophils (%) (Auto) 1.0 % (0.0-3.0) Basophils (%) (Auto) 0.6 % (0.0-2.0) Sodium Level 140 MMOL/L (136-145) Potassium Level 4.0 MMOL/L (3.5-5.1) Chloride Level 104 MMOL/L (98-107) Carbon Dioxide Level 29 MMOL/L (21-32) Anion Gap 7 mmol/L (5-15) Blood Urea Nitrogen 11 mg/dL (7-18) Creatinine 0.8 MG/DL (0.55-1.30) Estimat Glomerular Filtration Rate > 60 mL/min (>60) Glucose Level 106 MG/DL (74-106) Calcium Level 9.0 MG/DL (8.5-10.1) Plan Problems: (1) Facial abscess Assessment & Plan: CT MAXILLOFACIAL: Bone: No facial fracture. Soft tissues: Orbits/globes are intact. No hematoma. There is soft tissue thickening and edema/infection in the left periauricular region (close to the parotid gland but appears to be outside of the gland) with underlying superficial 2 cm cystic process/abscess. Mastoids: Clear. External auditory canal and middle ears are clear bilaterally. As noted on the CT the auditory canal and the middle ear is clear bilaterally, the left preauricular region close to the parotid broadside of it has a superficial cystic process versus abscess. On examination patient with cellulitis in the left preauricular area that is tender but no drainage. Low- grade fevers and leukocytosis. No acute general surgery intervention recommended at this time Recommend IV antibiotics and warm compress If possible ENT evaluation Trend labs Thank you for allowing me to participate in patient's care will follow with recommendations (2) Mastoiditis Vu Murphy Apr 07, 2019 15:47
[2019-04-07 16:00] VITALS: BP 120/83
[2019-04-07 20:00] VITALS: BP 124/73
--- NOTE | 2019-04-07 21:14 | General Progress Note ---
Assessment/Plan Problem List: (1) Facial abscess ICD Codes: L02.01 - Cutaneous abscess of face SNOMED: 613496986 (2) Mastoiditis ICD Codes: H70.90 - Unspecified mastoiditis, unspecified ear SNOMED: [id number] Status: progressing Assessment/Plan: iv abx pe id mastoditis continue w iv abx swelling and pain is improving and subsiding Subjective ROS Limited/Unobtainable: Yes Allergies: Coded Allergies: No Known Allergies (Unverified , 04/04/19) Objective Last 24 Hour Vital Signs Date Time Temp Pulse Resp B/P (MAP) Pulse Ox O2 Delivery O2 Flow Rate FiO2 04/07/19 20:00 99.2 79 18 124/73 (90) 96 04/07/19 16:00 97.9 70 20 120/83 (95) 99 04/07/19 12:00 97.9 65 20 126/83 (97) 99 04/07/19 08:52 Room Air 04/07/19 07:53 97.9 70 20 107/77 (87) 99 04/07/19 04:00 97.9 69 20 121/63 (82) 99 04/07/19 00:00 98.2 76 18 115/72 (86) 96 Intake and Output 04/06/19 04/07/19 19:00 07:00 Intake Total 1496.666 ml 1158.333 ml Balance 1496.666 ml 1158.333 ml Intake Oral 500 ml IV Total 996.666 ml 1158.333 ml # Voids 4 1 Laboratory Tests 04/07/19 06:50: White Blood Count 9.9, Red Blood Count 4.76, Hemoglobin 14.0L, Hematocrit 40.4L , Mean Corpuscular Volume 85, Mean Corpuscular Hemoglobin 29.3, Mean Corpuscular Hemoglobin Concent 34.5, Red Cell Distribution Width 10.5L, Platelet Count 213, Mean Platelet Volume 6.2L, Neutrophils (%) (Auto) 74.0, Lymphocytes (%) (Auto) 17.8L, Monocytes (%) (Auto) 6.5, Eosinophils (%) (Auto) 1.0, Basophils (%) (Auto) 0.6, Sodium Level 140, Potassium Level 4.0, Chloride Level 104, Carbon Dioxide Level 29, Anion Gap 7, Blood Urea Nitrogen 11, Creatinine 0.8, Estimat Glomerular Filtration Rate > 60, Glucose Level 106, Calcium Level 9.0 04/07/19 20:45: Vancomycin Level Trough 13.1H Height (Feet): 5 Height (Inches): 11.00 Weight (Pounds): 195 Neck: supple Cardiovascular: normal rate Respiratory/Chest: lungs clear Daisy Villarreal MD Apr 07, 2019 21:14
[2019-04-08] VITALS: BP 119/64
[2019-04-08 04:00] VITALS: BP 126/76
[2019-04-08] MEDS: Vancomycin 1.25gm/NS Premix IVPB SCH ×3 (05:47→21:53)
[2019-04-08] MEDS: HYDROcodone/Acetamin 5/325 tab ORAL PRN ×3 (05:54→21:52)
[2019-04-08 08:00] VITALS: BP 123/76
[2019-04-08 12:00] VITALS: BP 124/81
--- NOTE | 2019-04-08 14:34 | Surgery Progress Note ---
Surgery Progress Note Subjective Symptoms: improved, tolerating diet, voiding well, pain decreased Objective Last 24 Hour Vital Signs Date Time Temp Pulse Resp B/P (MAP) Pulse Ox O2 Delivery O2 Flow Rate FiO2 04/08/19 12:00 98.1 66 18 124/81 (95) 98 04/08/19 08:27 Room Air 04/08/19 08:00 98.2 68 17 123/76 (92) 98 04/08/19 04:00 98.6 63 20 126/76 (93) 98 04/08/19 00:00 98.6 66 18 119/64 (82) 98 04/07/19 22:17 Room Air 04/07/19 20:00 99.2 79 18 124/73 (90) 96 04/07/19 16:00 97.9 70 20 120/83 (95) 99 I&O Intake and Output 04/07/19 04/08/19 18:59 06:59 Intake Total 1666.666 ml 1368.333 ml Balance 1666.666 ml 1368.333 ml Intake Oral 600 ml IV Total 1066.666 ml 1368.333 ml # Voids 2 2 Cardiovascular: RSR Respiratory: clear Abdomen: soft, flat, non-tender, present bowel sounds Extremities: no edema, no tenderness, no cyanosis Laboratory Tests Test 04/07/19 20:45 Vancomycin Level Trough 13.1 ug/mL (5.0-12.0) H Plan Problems: (1) Facial abscess Assessment & Plan: CT MAXILLOFACIAL: Bone: No facial fracture. Soft tissues: Orbits/globes are intact. No hematoma. There is soft tissue thickening and edema/infection in the left periauricular region (close to the parotid gland but appears to be outside of the gland) with underlying superficial 2 cm cystic process/abscess. Mastoids: Clear. External auditory canal and middle ears are clear bilaterally. As noted on the CT the auditory canal and the middle ear is clear bilaterally, the left preauricular region close to the parotid broadside of it has a superficial cystic process versus abscess. On examination patient with cellulitis in the left preauricular area that is tender but no drainage. Low- grade fevers and leukocytosis. No acute general surgery intervention recommended at this time Recommend IV antibiotics and warm compress If possible ENT evaluation Trend labs Phlegmon may be forming abscess but improving. May consider I&D over the next day or 2 if abscess is formed and identified on examination Thank you for allowing me to participate in patient's care will follow with recommendations (2) Mastoiditis Vu Murphy Apr 08, 2019 14:34
[2019-04-08 16:10] VITALS: BP 117/63
[2019-04-08 20:00] VITALS: BP 126/74
--- NOTE | 2019-04-08 21:15 | General Progress Note ---
Assessment/Plan Problem List: (1) Facial abscess ICD Codes: L02.01 - Cutaneous abscess of face SNOMED: 170216749 (2) Mastoiditis ICD Codes: H70.90 - Unspecified mastoiditis, unspecified ear SNOMED: [id number] Status: progressing Assessment/Plan: fascial cellulitis is improving need abx for weeks reviewed chart and labs mastoditis continue w iv abx swelling and pain is improving and subsiding Subjective ROS Limited/Unobtainable: Yes Allergies: Coded Allergies: No Known Allergies (Unverified , 04/04/19) Objective Last 24 Hour Vital Signs Date Time Temp Pulse Resp B/P (MAP) Pulse Ox O2 Delivery O2 Flow Rate FiO2 04/08/19 16:10 98.6 74 18 117/63 (81) 98 04/08/19 12:00 98.1 66 18 124/81 (95) 98 04/08/19 08:27 Room Air 04/08/19 08:00 98.2 68 17 123/76 (92) 98 04/08/19 04:00 98.6 63 20 126/76 (93) 98 04/08/19 00:00 98.6 66 18 119/64 (82) 98 04/07/19 22:17 Room Air Intake and Output 04/07/19 04/08/19 19:00 07:00 Intake Total 1666.666 ml 1298.333 ml Balance 1666.666 ml 1298.333 ml Intake Oral 600 ml IV Total 1066.666 ml 1298.333 ml # Voids 2 2 Height (Feet): 5 Height (Inches): 11.00 Weight (Pounds): 195 Neck: supple Cardiovascular: normal rate Respiratory/Chest: lungs clear Daisy Villarreal MD Apr 08, 2019 21:15
[2019-04-09] VITALS: BP 129/67
[2019-04-09 04:00] VITALS: BP 124/70
[2019-04-09] MEDS: HYDROcodone/Acetamin 5/325 tab ORAL PRN (05:00)
[2019-04-09] MEDS: Vancomycin 1.25gm/NS Premix IVPB SCH ×3 (06:14→22:08)
[2019-04-09 07:53] LABS: INR 0.9 (0.9-1.1)
[2019-04-09 08:03] LABS: EOSINOPHILS % (AUTO) 2.7 % (0.0-3.0); HEMATOCRIT 41.3 % (42.0-52.0); HEMOGLOBIN 14.3 G/DL (14.2-18.0); LYMPHOCYTES % (AUTO) 19.1 % (20.0-45.0); MEAN CORPUSCULAR VOLUME 85 FL (80-99); NEUTROPHILS % (AUTO) 71.3 % (45.0-75.0); PLATELET COUNT 242 K/UL (150-450); RED BLOOD COUNT 4.88 M/UL (4.70-6.10); RED CELL DISTRIBUTION WIDTH 10.5 % (11.6-14.8); WHITE BLOOD COUNT 8.3 K/UL (4.8-10.8)
[2019-04-09 08:15] LABS: ANION GAP 8 mmol/L (5-15); BLOOD UREA NITROGEN 10 mg/dL (7-18); CALCIUM 9.3 MG/DL (8.5-10.1); CARBON DIOXIDE 29 MMOL/L (21-32); CHLORIDE 107 MMOL/L (98-107); CREATININE 0.9 MG/DL (0.55-1.30); POTASSIUM 4.6 MMOL/L (3.5-5.1); SODIUM 144 MMOL/L (136-145)
[2019-04-09 08:16] VITALS: BP 116/69
[2019-04-09 12:00] VITALS: BP 112/72
--- NOTE | 2019-04-09 13:59 | Infectious Diseases Prog Note ---
Assessment/Plan Assessment/Plan IMPRESSION: Cutaneous abscess of face near left ear. Facial cellulitis extending to upper neck nicotine dependence. RECOMMENDATIONS: Continue IV vancomycin Wound culture I & D was scheduled Subjective ROS Limited/Unobtainable: No HEENT: Reports: other - near left ear Respiratory: Reports: no symptoms Cardiovascular: Reports: no symptoms Gastrointestinal/Abdominal: Reports: no symptoms Skin: Reports: other - skin abscess was opened in bedside Allergies: Coded Allergies: No Known Allergies (Unverified , 04/04/19) Objective Vital Signs Last 24 Hour Vital Signs Date Time Temp Pulse Resp B/P (MAP) Pulse Ox O2 Delivery O2 Flow Rate FiO2 04/09/19 12:00 98.0 82 18 112/72 (85) 100 04/09/19 08:18 Room Air 04/09/19 08:16 98.5 65 18 116/69 (85) 98 04/09/19 04:00 98.2 73 20 124/70 (88) 98 04/09/19 00:00 98.0 70 20 129/67 (87) 98 04/08/19 21:00 Room Air 04/08/19 20:00 99.0 70 20 126/74 (91) 98 04/08/19 16:10 98.6 74 18 117/63 (81) 98 Height (Feet): 5 Height (Inches): 11.00 Weight (Pounds): 195 General Appearance: no acute distress HEENT: mucous membranes moist Respiratory/Chest: lungs clear Cardiovascular: normal rate Abdomen: soft, non tender Extremities: no edema Skin: other - bloody drainage from left face abscess Neurologic/Psychiatric: alert, oriented x 3, responsive Laboratory Tests Test 04/09/19 06:15 White Blood Count 8.3 K/UL (4.8-10.8) Red Blood Count 4.88 M/UL (4.70-6.10) Hemoglobin 14.3 G/DL (14.2-18.0) Hematocrit 41.3 % (42.0-52.0) L Mean Corpuscular Volume 85 FL (80-99) Mean Corpuscular Hemoglobin 29.2 PG (27.0-31.0) Mean Corpuscular Hemoglobin Concent 34.5 G/DL (32.0-36.0) Red Cell Distribution Width 10.5 % (11.6-14.8) L Platelet Count 242 K/UL (150-450) Mean Platelet Volume 6.2 FL (6.5-10.1) L Neutrophils (%) (Auto) 71.3 % (45.0-75.0) Lymphocytes (%) (Auto) 19.1 % (20.0-45.0) L Monocytes (%) (Auto) 6.0 % (1.0-10.0) Eosinophils (%) (Auto) 2.7 % (0.0-3.0) Basophils (%) (Auto) 1.0 % (0.0-2.0) Erythrocyte Sedimentation Rate 26 MM/HR (0-15) H Prothrombin Time 9.7 SEC (9.30-11.50) Prothromb Time International Ratio 0.9 (0.9-1.1) Activated Partial Thromboplast Time 29 SEC (23-33) Sodium Level 144 MMOL/L (136-145) Potassium Level 4.6 MMOL/L (3.5-5.1) Chloride Level 107 MMOL/L (98-107) Carbon Dioxide Level 29 MMOL/L (21-32) Anion Gap 8 mmol/L (5-15) Blood Urea Nitrogen 10 mg/dL (7-18) Creatinine 0.9 MG/DL (0.55-1.30) Estimat Glomerular Filtration Rate > 60 mL/min (>60) Glucose Level 104 MG/DL (74-106) Calcium Level 9.3 MG/DL (8.5-10.1) C-Reactive Protein, Quantitative 1.5 mg/dL (0.00-0.90) H Current Medications Medications (Trade) Dose Ordered Sig/Nikolai Route PRN Reason Start Time Stop Time Status Last Admin Dose Admin Acetaminophen (Tylenol) 650 mg Q4H PRN ORAL Mild Pain/Temp > 100.5 04/05/19 03:45 05/05/19 03:44 Acetaminophen/ Hydrocodone Bitart ([place] 5/325) 1 tab Q6H PRN ORAL For Pain 04/05/19 03:45 04/12/19 03:44 04/09/19 05:00 Sodium Chloride 1,000 ml @ 70 mls/hr [id number] IV 04/05/19 04:00 05/05/19 03:59 04/08/19 20:00 Vancomycin HCl (Vanco rx to dose) 1 ea DAILY PRN MISC Per rx protocol 04/05/19 07:30 05/05/19 07:29 Vancomycin/Sodium Chloride 275 ml @ 183.333 mls/hr Q8HR IVPB 04/06/19 10:30 04/11/19 10:29 04/09/19 06:14 Tavon Stapleton MD Apr 09, 2019 13:59
--- NOTE | 2019-04-09 14:20 | Surgery Progress Note ---
Surgery Progress Note Subjective Additional Comments spontaneous drainage Objective Last 24 Hour Vital Signs Date Time Temp Pulse Resp B/P (MAP) Pulse Ox O2 Delivery O2 Flow Rate FiO2 04/09/19 12:00 98.0 82 18 112/72 (85) 100 04/09/19 08:18 Room Air 04/09/19 08:16 98.5 65 18 116/69 (85) 98 04/09/19 04:00 98.2 73 20 124/70 (88) 98 04/09/19 00:00 98.0 70 20 129/67 (87) 98 04/08/19 21:00 Room Air 04/08/19 20:00 99.0 70 20 126/74 (91) 98 04/08/19 16:10 98.6 74 18 117/63 (81) 98 I&O Intake and Output 04/08/19 04/09/19 18:59 06:59 Intake Total 908.333 ml 485.000 ml Balance 908.333 ml 485.000 ml Intake Oral 240 ml IV Total 668.333 ml 485.000 ml # Voids 2 3 # Bowel Movements 1 Cardiovascular: RSR Respiratory: clear Abdomen: soft, flat, non-tender, present bowel sounds Extremities: no tenderness, no cyanosis Laboratory Tests Test 04/09/19 06:15 White Blood Count 8.3 K/UL (4.8-10.8) Red Blood Count 4.88 M/UL (4.70-6.10) Hemoglobin 14.3 G/DL (14.2-18.0) Hematocrit 41.3 % (42.0-52.0) L Mean Corpuscular Volume 85 FL (80-99) Mean Corpuscular Hemoglobin 29.2 PG (27.0-31.0) Mean Corpuscular Hemoglobin Concent 34.5 G/DL (32.0-36.0) Red Cell Distribution Width 10.5 % (11.6-14.8) L Platelet Count 242 K/UL (150-450) Mean Platelet Volume 6.2 FL (6.5-10.1) L Neutrophils (%) (Auto) 71.3 % (45.0-75.0) Lymphocytes (%) (Auto) 19.1 % (20.0-45.0) L Monocytes (%) (Auto) 6.0 % (1.0-10.0) Eosinophils (%) (Auto) 2.7 % (0.0-3.0) Basophils (%) (Auto) 1.0 % (0.0-2.0) Erythrocyte Sedimentation Rate 26 MM/HR (0-15) H Prothrombin Time 9.7 SEC (9.30-11.50) Prothromb Time International Ratio 0.9 (0.9-1.1) Activated Partial Thromboplast Time 29 SEC (23-33) Sodium Level 144 MMOL/L (136-145) Potassium Level 4.6 MMOL/L (3.5-5.1) Chloride Level 107 MMOL/L (98-107) Carbon Dioxide Level 29 MMOL/L (21-32) Anion Gap 8 mmol/L (5-15) Blood Urea Nitrogen 10 mg/dL (7-18) Creatinine 0.9 MG/DL (0.55-1.30) Estimat Glomerular Filtration Rate > 60 mL/min (>60) Glucose Level 104 MG/DL (74-106) Calcium Level 9.3 MG/DL (8.5-10.1) C-Reactive Protein, Quantitative 1.5 mg/dL (0.00-0.90) H Plan Problems: (1) Facial abscess Assessment & Plan: CT MAXILLOFACIAL: Bone: No facial fracture. Soft tissues: Orbits/globes are intact. No hematoma. There is soft tissue thickening and edema/infection in the left periauricular region (close to the parotid gland but appears to be outside of the gland) with underlying superficial 2 cm cystic process/abscess. Mastoids: Clear. External auditory canal and middle ears are clear bilaterally. As noted on the CT the auditory canal and the middle ear is clear bilaterally, the left preauricular region close to the parotid broadside of it has a superficial cystic process versus abscess. On examination patient with cellulitis in the left preauricular area that is tender but no drainage. Low- grade fevers and leukocytosis. No acute general surgery intervention recommended at this time Recommend IV antibiotics and warm compress If possible ENT evaluation Trend labs phlegmon formed abscess. needs I&D. spont draining now plan for tomorrow Thank you for allowing me to participate in patient's care will follow with recommendations (2) Mastoiditis Vu Murphy Apr 09, 2019 14:20
--- NOTE | 2019-04-09 14:21 | Pre-Procedure Note/Attestation ---
Pre-Procedure Note/Attestation Complete Prior to Procedure Planned Procedure: left Procedure Narrative: incision and drainage of left facial abscess Indications for Procedure Pre-Operative Diagnosis: left facial abscess Attestation I attest that I discussed the nature of the procedure; its benefits; risks and complications; and alternatives (and the risks and benefits of such alternatives ), prior to the procedure, with the patient (or the patient's legal hardware supplies sales representative). I attest that, if there was a reasonable possibility of needing a blood transfusion, the patient (or the patient's legal hardware supplies sales representative) was given the [facility] standardized written summary, pursuant to the [place] Blood Safety Act ([place] Health and Safety Code # 1645, as amended). I attest that I re-evaluated the patient just prior to the surgery and that there has been no change in the patient's H&P, except as documented below: Vu Murphy Apr 09, 2019 14:21
[2019-04-09 16:00] VITALS: BP 129/72
[2019-04-09 20:00] VITALS: BP 128/61
--- NOTE | 2019-04-09 20:52 | General Progress Note ---
Assessment/Plan Problem List: (1) Facial abscess ICD Codes: L02.01 - Cutaneous abscess of face SNOMED: 860662389 (2) Mastoiditis ICD Codes: H70.90 - Unspecified mastoiditis, unspecified ear SNOMED: 11502292 Status: progressing Assessment/Plan: no acute events afebrile no wheezing mastoditis continue w iv abx swelling and pain is improving and subsiding Subjective ROS Limited/Unobtainable: Yes Allergies: Coded Allergies: No Known Allergies (Unverified , 04/04/19) Objective Last 24 Hour Vital Signs Date Time Temp Pulse Resp B/P (MAP) Pulse Ox O2 Delivery O2 Flow Rate FiO2 04/09/19 16:00 99.2 63 18 129/72 (91) 100 04/09/19 12:00 98.0 82 18 112/72 (85) 100 04/09/19 08:18 Room Air 04/09/19 08:16 98.5 65 18 116/69 (85) 98 04/09/19 04:00 98.2 73 20 124/70 (88) 98 04/09/19 00:00 98.0 70 20 129/67 (87) 98 04/08/19 21:00 Room Air Intake and Output 04/08/19 04/09/19 19:00 07:00 Intake Total 978.333 ml 415.000 ml Balance 978.333 ml 415.000 ml Intake Oral 240 ml IV Total 738.333 ml 415.000 ml # Voids 2 3 # Bowel Movements 1 Laboratory Tests 04/09/19 06:15: White Blood Count 8.3, Red Blood Count 4.88, Hemoglobin 14.3, Hematocrit 41.3L, Mean Corpuscular Volume 85, Mean Corpuscular Hemoglobin 29.2, Mean Corpuscular Hemoglobin Concent 34.5, Red Cell Distribution Width 10.5L, Platelet Count 242, Mean Platelet Volume 6.2L, Neutrophils (%) (Auto) 71.3, Lymphocytes (%) (Auto) 19.1L, Monocytes (%) (Auto) 6.0, Eosinophils (%) (Auto) 2.7, Basophils (%) (Auto ) 1.0, Erythrocyte Sedimentation Rate 26H, Prothrombin Time 9.7, Prothromb Time International Ratio 0.9, Activated Partial Thromboplast Time 29, Sodium Level 144, Potassium Level 4.6, Chloride Level 107, Carbon Dioxide Level 29, Anion Gap 8, Blood Urea Nitrogen 10, Creatinine 0.9, Estimat Glomerular Filtration Rate > 60, Glucose Level 104, Calcium Level 9.3, C-Reactive Protein, Quantitative 1.5H Height (Feet): 5 Height (Inches): 11.00 Weight (Pounds): 195 Neck: supple Cardiovascular: normal rate Respiratory/Chest: lungs clear Abdomen: soft Daisy Villarreal MD Apr 09, 2019 20:52
[2019-04-10] VITALS (13 sets, daily range): BP systolic 115–132; BP diastolic 63–78
[2019-04-10] MEDS: Vancomycin 1.25gm/NS Premix IVPB SCH ×3 (05:15→22:16)
[2019-04-10 07:01] LABS: INR 0.9 (0.9-1.1)
[2019-04-10 07:02] LABS: BASOPHILS % (AUTO) 1.5 % (0.0-2.0); EOSINOPHILS % (AUTO) 5.5 % (0.0-3.0); HEMATOCRIT 42.2 % (42.0-52.0); HEMOGLOBIN 14.5 G/DL (14.2-18.0); LYMPHOCYTES % (AUTO) 22.6 % (20.0-45.0); MEAN CORPUSCULAR VOLUME 85 FL (80-99); MONOCYTES % (AUTO) 6.7 % (1.0-10.0); NEUTROPHILS % (AUTO) 63.7 % (45.0-75.0); PLATELET COUNT 279 K/UL (150-450); RED BLOOD COUNT 4.96 M/UL (4.70-6.10); RED CELL DISTRIBUTION WIDTH 10.5 % (11.6-14.8); WHITE BLOOD COUNT 6.3 K/UL (4.8-10.8)
[2019-04-10 09:42] LABS: ANION GAP 6 mmol/L (5-15); BLOOD UREA NITROGEN 8 mg/dL (7-18); CALCIUM 9.5 MG/DL (8.5-10.1); CARBON DIOXIDE 31 MMOL/L (21-32); CHLORIDE 105 MMOL/L (98-107); CREATININE 0.8 MG/DL (0.55-1.30); POTASSIUM 4.9 MMOL/L (3.5-5.1); SODIUM 142 MMOL/L (136-145)
[2019-04-10] MEDS ORDERED: LR 1000ml ONE (12:00)
[2019-04-10] MEDS ORDERED: NS Irrig 1000ml ONE (12:00)
[2019-04-10] MEDS ORDERED: Sterile Water Irrig 1000ml IRRIG ONE (12:00)
[2019-04-10] MEDS ORDERED: Alfentanil 2ml Inj ONE (12:15)
[2019-04-10] MEDS ORDERED: LR 1000ml 1,000 ML IVLG SCH (12:21)
--- NOTE | 2019-04-10 12:22 | Anethesia Preoperative Eval ---
Anesthesia Pre-op PMH/ROS General Date of Evaluation: Apr 10, 2019 Time of Evaluation: 12:17 Anesthesiologist: Kusum ASA Score: ASA 1 Mallampati Score Class I : Soft palate, uvula, fauces, pillars visible Class II: Soft palate, uvula, fauces visible Class III: Soft palate, base of uvula visible Class IV: Only hard plate visible Mallampati Classification: Class I Surgeon: Katherine Diagnosis: L Ear Infection Surgical Procedure: I&D L Ear Anesthesia History: none Family History: no anesthesia problems Allergies: Coded Allergies: No Known Allergies (Unverified , 04/04/19) Medications: see eMAR Patient NPO?: Yes NPO Date: Apr 10, 2019 NPO Time: 0000 Anesthesia Pre-op Phys. Exam Physician Exam Last Vital Signs Date Time Temp Pulse Resp B/P (MAP) Pulse Ox O2 Delivery O2 Flow Rate FiO2 04/10/19 09:00 Room Air 04/10/19 08:00 98.1 65 18 118/64 (82) 100 Constitutional: NAD Neurologic: CN 2-12 intact Cardiovascular: RRR Respiratory: CTA Gastrointestinal: S/NT/ND Airway Exam Mallampati Score: Class I MO: full ROM: full Teeth: intact Anesthesia Pre-op A/P Labs Hematology Test 04/10/19 05:15 White Blood Count 6.3 K/UL (4.8-10.8) Red Blood Count 4.96 M/UL (4.70-6.10) Hemoglobin 14.5 G/DL (14.2-18.0) Hematocrit 42.2 % (42.0-52.0) Mean Corpuscular Volume 85 FL (80-99) Mean Corpuscular Hemoglobin 29.3 PG (27.0-31.0) Mean Corpuscular Hemoglobin Concent 34.4 G/DL (32.0-36.0) Red Cell Distribution Width 10.5 % (11.6-14.8) L Platelet Count 279 K/UL (150-450) Mean Platelet Volume 6.2 FL (6.5-10.1) L Neutrophils (%) (Auto) 63.7 % (45.0-75.0) Lymphocytes (%) (Auto) 22.6 % (20.0-45.0) Monocytes (%) (Auto) 6.7 % (1.0-10.0) Eosinophils (%) (Auto) 5.5 % (0.0-3.0) H Basophils (%) (Auto) 1.5 % (0.0-2.0) Coagulation Test 04/10/19 05:15 Prothrombin Time 9.3 SEC (9.30-11.50) Prothromb Time International Ratio 0.9 (0.9-1.1) Activated Partial Thromboplast Time 28 SEC (23-33) Chemistry Test 04/10/19 08:30 Sodium Level 142 MMOL/L (136-145) Potassium Level 4.9 MMOL/L (3.5-5.1) Chloride Level 105 MMOL/L (98-107) Carbon Dioxide Level 31 MMOL/L (21-32) Anion Gap 6 mmol/L (5-15) Blood Urea Nitrogen 8 mg/dL (7-18) Creatinine 0.8 MG/DL (0.55-1.30) Estimat Glomerular Filtration Rate > 60 mL/min (>60) Glucose Level 110 MG/DL (74-106) H Calcium Level 9.5 MG/DL (8.5-10.1) Risk Assessment & Plan Assessment: ASA 1 Plan: GA Status Change Before Surgery: Azar Galvin MD Apr 10, 2019 12:22
--- NOTE | 2019-04-10 12:27 | Immediate Post-Op Evaluation ---
Immediate Post-Op Evalulation Immediate Post-Op Evalulation Procedure: I&D L Ear Date of Evaluation: Apr 10, 2019 Time of Evaluation: 13:09 IV Fluids: 300 LR Blood Products: 0 Estimated Blood Loss: 12 Urinary Output: 0 Blood Pressure Systolic: 131 Blood Pressure Diastolic: 78 Pulse Rate: 69 Respiratory Rate: 16 O2 Sat by Pulse Oximetry: 100 Temperature (Fahrenheit): 97.4 Pain Score (1-10): 2 Nausea: No Vomiting: No Complications 0 Patient Status: awake, reacts, patent, none Hydration Status: adequate Azar Noe MD Apr 10, 2019 12:27
[2019-04-10] MEDS ORDERED: Bacitracin Oint 15gm Tube TOPIC ONE (12:29)
[2019-04-10] MEDS ORDERED: Lidocaine 1% 10mg/ml/Epi 0.005mg/ml 10ml vial INJ ONE (12:29)
[2019-04-10] MEDS ORDERED: HYDROcodone/Acetamin 7.5/325 tab ORAL PRN (12:30)
[2019-04-10] MEDS ORDERED: Ketorolac 30mg Inj IV PRN ×2 (12:30)
[2019-04-10] MEDS ORDERED: DiphenhydrAMINE 50mg/ml Inj IVP PRN (12:30)
[2019-04-10] MEDS ORDERED: HYDROcodone/Acetamin 5/325 tab ORAL PRN ×2 (12:30→13:00)
[2019-04-10] MEDS ORDERED: Bacitracin 50000 Units Vial ONE (12:30)
[2019-04-10] MEDS ORDERED: LORazepam Inj 2mg/ml 1ml IV PRN (12:30)
[2019-04-10] MEDS ORDERED: Metoclopramide 10mg/2ml Inj IVP PRN (12:30)
[2019-04-10] MEDS ORDERED: Hydromorphone 0.5mg/0.5ml inj IVP PRN (12:30)
[2019-04-10] MEDS ORDERED: oxyCODONE HCL/Acetaminophen 5/325mg ORAL PRN (12:30)
[2019-04-10] MEDS ORDERED: Meperidine 50mg/ml Inj(FOR RIGORS ONLY) IVP PRN (12:30)
[2019-04-10] MEDS ORDERED: Midazolam 2mg/2ml Inj IVP PRN (12:30)
[2019-04-10] MEDS ORDERED: fentaNYL 100 mcg/2 mL IV PRN (12:30)
[2019-04-10] MEDS ORDERED: Labetalol 5mg/ml 20ml vial IV PRN (12:30)
[2019-04-10] MEDS ORDERED: Atropine Sulfate 0.4mg/ml inj IVP PRN (12:30)
--- NOTE | 2019-04-10 12:50 | Brief Operative Note ---
Immediate Post Operative Note Operative Note Pre-op Diagnosis: left facial abscess Procedure: I&D left facial abscess Post-op Diagnosis: same as pre-op Surgeon: sona Anesthesiologist: naeem Anesthesia: local, moderate sedation Specimen: yes Complications: none Condition: stable Fluids: see records Estimated Blood Loss: minimal Drains: none Implant(s) used?: No Vu Murphy Apr 10, 2019 12:50
[2019-04-10] MEDS ORDERED: HYDROcodone/Acetamin 10/325 tab ORAL PRN (13:00)
--- NOTE | 2019-04-10 14:45 | Infectious Diseases Prog Note ---
Assessment/Plan Assessment/Plan IMPRESSION: Cutaneous abscess of face near left ear. Facial cellulitis extending to upper neck nicotine dependence. RECOMMENDATIONS: Continue IV vancomycin Wound culture so far is negative At time of discharge PO Doxycycline X 4 days Subjective ROS Limited/Unobtainable: No Constitutional: Reports: no symptoms Respiratory: Reports: no symptoms Cardiovascular: Reports: no symptoms Gastrointestinal/Abdominal: Reports: no symptoms Skin: Reports: other - had I & D of facial abscess today Allergies: Coded Allergies: No Known Allergies (Unverified , 04/04/19) Objective Vital Signs Last 24 Hour Vital Signs Date Time Temp Pulse Resp B/P (MAP) Pulse Ox O2 Delivery O2 Flow Rate FiO2 04/10/19 13:42 64 17 122/72 97 Room Air 04/10/19 13:35 97.2 63 15 119/74 98 Room Air 04/10/19 13:25 63 14 130/76 98 Room Air 04/10/19 13:15 62 13 122/77 100 Room Air 04/10/19 13:10 66 15 123/72 97 Room Air 04/10/19 13:05 65 12 129/78 98 Room Air 04/10/19 13:00 68 14 131/74 98 Room Air 04/10/19 12:58 97.4 69 16 132/78 98 Room Air 04/10/19 12:55 69 16 100 04/10/19 09:00 Room Air 04/10/19 08:00 98.1 65 18 118/64 (82) 100 04/10/19 04:00 97.5 60 16 115/63 (80) 100 04/10/19 00:00 98.0 70 18 129/76 (93) 98 04/09/19 21:00 Room Air 04/09/19 20:00 98.7 67 20 128/61 (83) 99 04/09/19 16:00 99.2 63 18 129/72 (91) 100 Height (Feet): 5 Height (Inches): 11.00 Weight (Pounds): 195 General Appearance: no acute distress HEENT: mucous membranes moist Respiratory/Chest: lungs clear Cardiovascular: normal rate Abdomen: soft, non tender Extremities: no edema Skin: other - left facial dressing Microbiology Date/Time Source Procedure Growth Status 04/09/19 14:35 Face Gram Stain - Final Resulted 04/09/19 14:35 Face Wound Culture - Preliminary NO GROWTH Resulted Laboratory Tests Test 04/10/19 05:15 04/10/19 08:30 White Blood Count 6.3 K/UL (4.8-10.8) Red Blood Count 4.96 M/UL (4.70-6.10) Hemoglobin 14.5 G/DL (14.2-18.0) Hematocrit 42.2 % (42.0-52.0) Mean Corpuscular Volume 85 FL (80-99) Mean Corpuscular Hemoglobin 29.3 PG (27.0-31.0) Mean Corpuscular Hemoglobin Concent 34.4 G/DL (32.0-36.0) Red Cell Distribution Width 10.5 % (11.6-14.8) L Platelet Count 279 K/UL (150-450) Mean Platelet Volume 6.2 FL (6.5-10.1) L Neutrophils (%) (Auto) 63.7 % (45.0-75.0) Lymphocytes (%) (Auto) 22.6 % (20.0-45.0) Monocytes (%) (Auto) 6.7 % (1.0-10.0) Eosinophils (%) (Auto) 5.5 % (0.0-3.0) H Basophils (%) (Auto) 1.5 % (0.0-2.0) Prothrombin Time 9.3 SEC (9.30-11.50) Prothromb Time International Ratio 0.9 (0.9-1.1) Activated Partial Thromboplast Time 28 SEC (23-33) Sodium Level 142 MMOL/L (136-145) Potassium Level 4.9 MMOL/L (3.5-5.1) Chloride Level 105 MMOL/L (98-107) Carbon Dioxide Level 31 MMOL/L (21-32) Anion Gap 6 mmol/L (5-15) Blood Urea Nitrogen 8 mg/dL (7-18) Creatinine 0.8 MG/DL (0.55-1.30) Estimat Glomerular Filtration Rate > 60 mL/min (>60) Glucose Level 110 MG/DL (74-106) H Calcium Level 9.5 MG/DL (8.5-10.1) Current Medications Medications (Trade) Dose Ordered Sig/Nikolai Route PRN Reason Start Time Stop Time Status Last Admin Dose Admin Acetaminophen (Tylenol) 650 mg Q4H PRN ORAL Mild Pain/Temp > 100.5 04/05/19 03:45 05/05/19 03:44 Acetaminophen/ Hydrocodone Bitart ([place] 10/325) 1 tab Q4H PRN ORAL Severe Pain (Pain Scale 7-10) 04/10/19 13:00 04/17/19 12:59 Acetaminophen/ Hydrocodone Bitart ([place] 5/325) 1 tab Q6H PRN ORAL moderate pain 04/10/19 13:00 04/12/19 03:44 Sodium Chloride 1,000 ml @ 70 mls/hr [id number] IV 04/05/19 04:00 05/05/19 03:59 04/09/19 20:00 Vancomycin HCl (Vanco rx to dose) 1 ea DAILY PRN MISC Per rx protocol 04/05/19 07:30 05/05/19 07:29 Vancomycin/Sodium Chloride 275 ml @ 183.333 mls/hr Q8HR IVPB 04/06/19 10:30 04/11/19 10:29 04/10/19 14:27 Tavon Stapleton MD Apr 10, 2019 14:45
--- NOTE | 2019-04-10 17:45 | Operative Note - Dictated ---
DATE OF OPERATION: 04/10/2019 PREOPERATIVE DIAGNOSIS: Left facial abscess. POSTOPERATIVE DIAGNOSIS: Left facial abscess, potentially infected cyst. OPERATION PERFORMED: Incision and drainage of the left facial abscess. ATTENDING SURGEON: Vu Murphy M.D. STREETSWEEPER OPERATOR: None. ANESTHESIOLOGIST: Azar Noe M.D. ANESTHESIA: Local plus sedation. SPECIMENS: Cyst cavity. COUNTS: Sponge and needle count correct x2. WOUND CLASSIFICATION: Class III. ANTIBIOTICS: The patient is on scheduled IV antibiotics. DRAINS: None. COMPLICATIONS: None. INDICATIONS FOR PROCEDURE: This is a 34-year-old male presented with left-sided facial swelling, pain, tenderness, and CT with cyst and surrounding inflammation. The patient was treated with IV antibiotics and significantly improved and then began to have phlegmon turn into the abscess with mild drainage requiring an incision and drainage. The above procedure indicated and recommended. Consent obtained from the patient. The patient was taken to the operating room on 04/10/2019. OPERATIVE NOTE: The patient was taken to the operating room and placed on the operating table in supine position with bilateral arms out. All bony prominences were well padded. SCDs were placed. Preoperative time-out taken in identifying the patient, procedure, operative staff, and surgical staff. Moderate sedation provided by the anesthesiologist. Local anesthetic infiltrated throughout the procedure to the patient's comfort. Left face was prepped and draped in standard surgical fashion. Area of fluctuance was identified for drainage and an incision was made using a fresh #15 scalpel. Incision was carried down to the abscess, which was evacuated. In that area, a cystic-type structure and thickened wall identified potentially an infected cyst noted ruptured open. Wound cavity was irrigated and cleansed followed by hemostasis, electrocautery, and placement of packing dressings. The patient tolerated the procedure well and was taken to postanesthetic care unit in stable condition. Vu Murphy M.D. DR: SEAN JOB#: [id number] CC:
--- NOTE | 2019-04-10 21:13 | General Progress Note ---
Assessment/Plan Problem List: (1) Facial abscess ICD Codes: L02.01 - Cutaneous abscess of face SNOMED: 791621584 (2) Mastoiditis ICD Codes: H70.90 - Unspecified mastoiditis, unspecified ear SNOMED: 24157317 Status: progressing Assessment/Plan: no acute events afebrile no mastoditis reviewed chart continue w iv abx swelling and pain is improving and subsiding Subjective ROS Limited/Unobtainable: Yes Allergies: Coded Allergies: No Known Allergies (Unverified , 04/04/19) Objective Last 24 Hour Vital Signs Date Time Temp Pulse Resp B/P (MAP) Pulse Ox O2 Delivery O2 Flow Rate FiO2 04/10/19 16:00 97.9 72 18 122/74 (90) 99 04/10/19 13:42 64 17 122/72 97 Room Air 04/10/19 13:35 97.2 63 15 119/74 98 Room Air 04/10/19 13:25 63 14 130/76 98 Room Air 04/10/19 13:15 62 13 122/77 100 Room Air 04/10/19 13:10 66 15 123/72 97 Room Air 04/10/19 13:05 65 12 129/78 98 Room Air 04/10/19 13:00 68 14 131/74 98 Room Air 04/10/19 12:58 97.4 69 16 132/78 98 Room Air 04/10/19 12:55 69 16 100 04/10/19 09:00 Room Air 04/10/19 08:00 98.1 65 18 118/64 (82) 100 04/10/19 04:00 97.5 60 16 115/63 (80) 100 04/10/19 00:00 98.0 70 18 129/76 (93) 98 Intake and Output 04/09/19 04/10/19 18:59 06:59 Intake Total 1000 ml 1110.000 ml Balance 1000 ml 1110.000 ml Intake Oral 1000 ml 0 ml IV Total 1110.000 ml # Voids 3 4 # Bowel Movements 1 Laboratory Tests 04/10/19 05:15: White Blood Count 6.3, Red Blood Count 4.96, Hemoglobin 14.5, Hematocrit 42.2, Mean Corpuscular Volume 85, Mean Corpuscular Hemoglobin 29.3, Mean Corpuscular Hemoglobin Concent 34.4, Red Cell Distribution Width 10.5L, Platelet Count 279, Mean Platelet Volume 6.2L, Neutrophils (%) (Auto) 63.7, Lymphocytes (%) (Auto) 22.6, Monocytes (%) (Auto) 6.7, Eosinophils (%) (Auto) 5.5H, Basophils (%) (Auto ) 1.5, Prothrombin Time 9.3, Prothromb Time International Ratio 0.9, Activated Partial Thromboplast Time 28 04/10/19 08:30: Sodium Level 142, Potassium Level 4.9, Chloride Level 105, Carbon Dioxide Level 31, Anion Gap 6, Blood Urea Nitrogen 8, Creatinine 0.8, Estimat Glomerular Filtration Rate > 60, Glucose Level 110H, Calcium Level 9.5 Height (Feet): 5 Height (Inches): 11.00 Weight (Pounds): 195 Neck: supple Cardiovascular: normal rate Respiratory/Chest: lungs clear Abdomen: soft Daisy Villarreal MD Apr 10, 2019 21:13
[2019-04-11] VITALS: BP 128/80
[2019-04-11 04:00] VITALS: BP 111/69
[2019-04-11] MEDS: Vancomycin 1.25gm/NS Premix IVPB SCH (05:31)
--- NOTE | 2019-04-11 07:15 | 48 Hour Post Anesthesia Eval ---
Post Anesthesia Evaluation Procedure: I&D L Ear Date of Evaluation: Apr 11, 2019 Airway: patent Nausea: No Vomiting: No Hydration Status: adequate Cardiopulmonary Status: at baseline Mental Status/LOC: patient returned to baseline Post-Anesthesia Complications: 0 Follow-up care needed: N/A - further care as per primary team Sujatha Thompson MD Apr 11, 2019 07:15
[2019-04-11 09:00] VITALS: BP 115/70
[2019-04-11 12:00] VITALS: BP 122/73
[2019-04-11] MEDS: VANCOMYCIN IVPB SCH ×2 (14:17→22:07)
[2019-04-11] MEDS: [UNRECOGNIZED DRUG - OTHER] IVPB SCH ×2 (14:17→22:07)
--- NOTE | 2019-04-11 15:09 | Infectious Diseases Prog Note ---
Assessment/Plan Assessment/Plan IMPRESSION: Cutaneous abscess of face near left ear. Facial cellulitis extending to upper neck nicotine dependence. RECOMMENDATIONS: Continue IV vancomycin Wound culture so far is negative At time of discharge PO Doxycycline X 3 days Case was D/W surgeon Subjective ROS Limited/Unobtainable: No Constitutional: Reports: no symptoms Respiratory: Reports: no symptoms Genitourinary: Reports: no symptoms Allergies: Coded Allergies: No Known Allergies (Unverified , 04/04/19) Objective Vital Signs Last 24 Hour Vital Signs Date Time Temp Pulse Resp B/P (MAP) Pulse Ox O2 Delivery O2 Flow Rate FiO2 04/11/19 12:00 99.2 77 18 122/73 (89) 100 04/11/19 09:00 98.3 71 17 115/70 (85) 100 04/11/19 09:00 Room Air 04/11/19 04:00 97.2 60 16 111/69 (83) 98 04/11/19 00:00 97.7 68 20 128/80 (96) 98 04/10/19 21:00 Room Air 04/10/19 20:00 98.2 70 21 131/69 (89) 98 04/10/19 16:00 97.9 72 18 122/74 (90) 99 Height (Feet): 5 Height (Inches): 11.00 Weight (Pounds): 195 General Appearance: no acute distress HEENT: mucous membranes moist Respiratory/Chest: lungs clear Cardiovascular: normal rate Abdomen: soft, non tender Extremities: no edema Skin: other - left face dressing, decreasing erythema Neurologic/Psychiatric: alert, oriented x 3, responsive Microbiology Date/Time Source Procedure Growth Status 04/09/19 14:35 Face Gram Stain - Final Resulted 04/09/19 14:35 Face Wound Culture - Preliminary NO GROWTH Resulted Current Medications Medications (Trade) Dose Ordered Sig/Nikolai Route PRN Reason Start Time Stop Time Status Last Admin Dose Admin Acetaminophen (Tylenol) 650 mg Q4H PRN ORAL Mild Pain/Temp > 100.5 04/05/19 03:45 05/05/19 03:44 Acetaminophen/ Hydrocodone Bitart ([place] 10/325) 1 tab Q4H PRN ORAL Severe Pain (Pain Scale 7-10) 04/10/19 13:00 04/17/19 12:59 Acetaminophen/ Hydrocodone Bitart ([place] 5/325) 1 tab Q6H PRN ORAL moderate pain 04/10/19 13:00 04/12/19 03:44 Vancomycin HCl (Vanco rx to dose) 1 ea DAILY PRN MISC Per rx protocol 04/05/19 07:30 05/05/19 07:29 Vancomycin HCl/ Dextrose 275 ml @ 183.333 mls/hr Q8HR IVPB 04/11/19 14:00 04/16/19 13:59 04/11/19 14:17 Tavon Stapleton MD Apr 11, 2019 15:08
[2019-04-11 16:00] VITALS: BP 114/69
--- NOTE | 2019-04-11 16:11 | Surgery Progress Note ---
Surgery Progress Note Subjective Procedure Performed I&D left facial abscess Symptoms: improved Additional Comments packing and dressing removed much improved Objective Last 24 Hour Vital Signs Date Time Temp Pulse Resp B/P (MAP) Pulse Ox O2 Delivery O2 Flow Rate FiO2 04/11/19 12:00 99.2 77 18 122/73 (89) 100 04/11/19 09:00 98.3 71 17 115/70 (85) 100 04/11/19 09:00 Room Air 04/11/19 04:00 97.2 60 16 111/69 (83) 98 04/11/19 00:00 97.7 68 20 128/80 (96) 98 04/10/19 21:00 Room Air 04/10/19 20:00 98.2 70 21 131/69 (89) 98 I&O Intake and Output 04/10/19 04/11/19 19:00 07:00 Intake Total 910 ml 515.000 ml Output Total 15 ml Balance 895 ml 515.000 ml Intake Oral 240 ml IV Total 910 ml 275.000 ml Output Estimated Blood Loss 15 ml # Voids 4 Dressing: saturated Wound: clean Cardiovascular: RSR Respiratory: clear Abdomen: soft, flat, non-tender, present bowel sounds Extremities: no edema, no tenderness, no cyanosis Plan Problems: (1) Facial abscess Assessment & Plan: CT MAXILLOFACIAL: Bone: No facial fracture. Soft tissues: Orbits/globes are intact. No hematoma. There is soft tissue thickening and edema/infection in the left periauricular region (close to the parotid gland but appears to be outside of the gland) with underlying superficial 2 cm cystic process/abscess. Mastoids: Clear. External auditory canal and middle ears are clear bilaterally. As noted on the CT the auditory canal and the middle ear is clear bilaterally, the left preauricular region close to the parotid broadside of it has a superficial cystic process versus abscess. On examination patient with cellulitis in the left preauricular area that is tender but no drainage. Low- grade fevers and leukocytosis. No acute general surgery intervention recommended at this time Recommend IV antibiotics and warm compress If possible ENT evaluation Trend labs s/p I&D okay to d/c home oral abx as per ID OTC ibuprofen / tylenol for pain f/u with pcp packing and dressings as instructed to patient at bedside by myself cont until healed Thank you for allowing me to participate in patient's care will follow with recommendations (2) Mastoiditis Vu Murphy Apr 11, 2019 16:11
[2019-04-11 20:00] VITALS: BP 130/74
--- NOTE | 2019-04-11 21:35 | General Progress Note ---
Assessment/Plan Problem List: (1) Facial abscess ICD Codes: L02.01 - Cutaneous abscess of face SNOMED: 133042213 (2) Mastoiditis ICD Codes: H70.90 - Unspecified mastoiditis, unspecified ear SNOMED: 68992492 Status: progressing Assessment/Plan: no acute events afebrile no mastoditis reviewed chart continue w iv abx s/p I&d of abscess facial Subjective ROS Limited/Unobtainable: Yes Allergies: Coded Allergies: No Known Allergies (Unverified , 04/04/19) Objective Last 24 Hour Vital Signs Date Time Temp Pulse Resp B/P (MAP) Pulse Ox O2 Delivery O2 Flow Rate FiO2 04/11/19 20:00 99.0 67 18 130/74 (92) 99 04/11/19 16:00 98.7 69 17 114/69 (84) 100 04/11/19 12:00 99.2 77 18 122/73 (89) 100 04/11/19 09:00 98.3 71 17 115/70 (85) 100 04/11/19 09:00 Room Air 04/11/19 04:00 97.2 60 16 111/69 (83) 98 04/11/19 00:00 97.7 68 20 128/80 (96) 98 Intake and Output 04/10/19 04/11/19 18:59 06:59 Intake Total 910 ml 515.000 ml Output Total 15 ml Balance 895 ml 515.000 ml Intake Oral 240 ml IV Total 910 ml 275.000 ml Output Estimated Blood Loss 15 ml # Voids 4 Height (Feet): 5 Height (Inches): 11.00 Weight (Pounds): 195 Cardiovascular: normal rate Respiratory/Chest: lungs clear Abdomen: soft Daisy Villarreal MD Apr 11, 2019 21:35
[2019-04-12] VITALS: BP 115/70
[2019-04-12 04:00] VITALS: BP 92/61
[2019-04-12] MEDS: VANCOMYCIN IVPB SCH (05:24)
[2019-04-12] MEDS: [UNRECOGNIZED DRUG - OTHER] IVPB SCH (05:24)
[2019-04-12 08:00] VITALS: BP 112/62
[2019-04-12] MEDS ORDERED: VIBRAMYCIN100 MG ORAL ×2 (10:34→10:35)
--- NOTE | 2019-04-12 10:50 | Infectious Diseases Prog Note ---
Assessment/Plan Assessment/Plan IMPRESSION: Cutaneous abscess of face near left ear. s/p I & D Facial cellulitis extending to upper neck nicotine dependence. RECOMMENDATIONS: Continue IV vancomycin Wound culture : normal adan At time of discharge PO Doxycycline X 3 days Subjective ROS Limited/Unobtainable: No Constitutional: Reports: other - feels better Respiratory: Reports: no symptoms Gastrointestinal/Abdominal: Reports: no symptoms Genitourinary: Reports: no symptoms Allergies: Coded Allergies: No Known Allergies (Unverified , 04/04/19) Objective Vital Signs Last 24 Hour Vital Signs Date Time Temp Pulse Resp B/P (MAP) Pulse Ox O2 Delivery O2 Flow Rate FiO2 04/12/19 04:00 98.2 59 18 92/61 (71) 98 04/12/19 00:00 99.6 20 115/70 (85) 100 04/11/19 21:00 Room Air 04/11/19 20:00 99.0 67 18 130/74 (92) 99 04/11/19 16:00 98.7 69 17 114/69 (84) 100 04/11/19 12:00 99.2 77 18 122/73 (89) 100 Height (Feet): 5 Height (Inches): 11.00 Weight (Pounds): 187 General Appearance: no acute distress HEENT: mucous membranes moist Respiratory/Chest: lungs clear Cardiovascular: normal rate Abdomen: soft, non tender Extremities: no edema Skin: other - decreased eryrhema & swellingof left parotid area Neurologic/Psychiatric: alert, oriented x 3, responsive Lymphatic: other - left neck adenopathy Microbiology Date/Time Source Procedure Growth Status 04/09/19 14:35 Face Gram Stain - Final Complete 04/09/19 14:35 Wound Culture - Final Usual Skin Adan Complete Current Medications Medications (Trade) Dose Ordered Sig/Nikolai Route PRN Reason Start Time Stop Time Status Last Admin Dose Admin Acetaminophen (Tylenol) 650 mg Q4H PRN ORAL Mild Pain/Temp > 100.5 04/05/19 03:45 05/05/19 03:44 Acetaminophen/ Hydrocodone Bitart ([place] 10/325) 1 tab Q4H PRN ORAL Severe Pain (Pain Scale 7-10) 04/10/19 13:00 04/17/19 12:59 Vancomycin HCl (Vanco rx to dose) 1 ea DAILY PRN MISC Per rx protocol 04/05/19 07:30 05/05/19 07:29 Vancomycin HCl/ Dextrose 275 ml @ 183.333 mls/hr Q8HR IVPB 04/11/19 14:00 04/16/19 13:59 04/12/19 05:24 Tavon Stapleton MD Apr 12, 2019 10:50
--- NOTE | 2019-04-12 13:02 | General Progress Note ---
Assessment/Plan Problem List: (1) Facial abscess ICD Codes: L02.01 - Cutaneous abscess of face SNOMED: 618036725 (2) Mastoiditis ICD Codes: H70.90 - Unspecified mastoiditis, unspecified ear SNOMED: 25290334 Status: progressing Assessment/Plan: cleared by id for dc so being dc see dc summary for details s/p I&d of abscess facial Subjective ROS Limited/Unobtainable: Yes Allergies: Coded Allergies: No Known Allergies (Unverified , 04/04/19) Objective Last 24 Hour Vital Signs Date Time Temp Pulse Resp B/P (MAP) Pulse Ox O2 Delivery O2 Flow Rate FiO2 04/12/19 04:00 98.2 59 18 92/61 (71) 98 04/12/19 00:00 99.6 20 115/70 (85) 100 04/11/19 21:00 Room Air 04/11/19 20:00 99.0 67 18 130/74 (92) 99 04/11/19 16:00 98.7 69 17 114/69 (84) 100 Intake and Output 04/11/19 04/12/19 19:00 07:00 Intake Total 1115.000 ml 275.000 ml Balance 1115.000 ml 275.000 ml Intake Oral 840 ml IV Total 275.000 ml 275.000 ml # Voids 4 3 Height (Feet): 5 Height (Inches): 11.00 Weight (Pounds): 187 Cardiovascular: normal rate Respiratory/Chest: lungs clear Daisy Villarreal MD Apr 12, 2019 13:02
--- NOTE | 2019-04-12 20:45 | Discharge Summary ---
Discharge Summary Discharge Summary _ DATE OF ADMISSION: 04/04/2019 DATE OF DISCHARGE: [] 04/12/2019 DISCHARGED BY: Dr. Villarreal REASON FOR ADMISSION: [] 34 years old male with no significant past medical history, presented with a left ear swelling for 1 week. Patient was seen in outside urgent care however reported worsening pain and presented to emergency room for evaluation. He denied fever or chills. No chest pain or shortness of breath. Pain reported as sharp achy moderate severity but constant. Upon evaluation patient was tachycardic but afebrile. Laboratory work-up revealed mild leukocytosis stable hemoglobin hematocrit. ESR 14. Stable electrolytes and renal parameters. Lactic acid 1.1. Chest x-ray revealed no acute pulmonary pathology. CT scan of the internal auditory canal revealed abnormality of the soft tissues superficial to the left parotid gland within the subcutaneous fat. Differential included cellulitis with central abscess, infectious disease less likely tumor. Patient started on empiric antibiotic in emergency department and subsequently admitted to medical surgical floor for further management. CONSULTANTS: garment sewer hand neurologist pulmonary ID specialist Dr. Davis GI specialist geospatial imagery intelligence analyst regional ehs manager/oncologist surgery Dr. Murphy psychiatrist HOSPITAL COURSE: [] Patient admitted to medical surgical floor general surgeon and ID specialist closely follow. Surgeon personally reviewed CT of the auditory canal middle ear was clear. Noted left preauricular region close to the parotid with superficial cystic process versus abscess. On eye examination patient had cellulitis in the left preauricular area tender to touch no drainage. In the hospital patient developed low-grade fever as well as the had leukocytosis on admission. Initially no acute general surgery intervention was recommended. Surgeon recommended warm compresses and IV antibiotics. Initially no acute surgical intervention was recommended. Antibiotic provided as per ID specialist recommendation. Blood cultures were negative. Wound culture revealed normal adan. Patient was on IV vancomycin while at the hospital and switched to oral doxy doxycycline upon discharge for additional 3 days to complete the course. Surgeon closely follow. Patient developed low-grade fever phlegmon was probably phlegmon was for me but patient was clinically improving surgeon recommended consider an incision and drainage over the next day or 2 if abscess is formed and identified on examination. Abscess was identified patient had phlegmon for abscess and had a spontaneous draining at this time patient subsequently undergone on 6 Patient undergone on incision and drainage of the left facial abscess. Pain management was addressed Supportive care provided. Patient was recommended [id number]-pyp-gymtnct ibuprofen or Tylenol for pain. Patient was instructed on packing and dressing by surgeon wound care should be continued until it heals. Patient to follow-up with a primary care provider. Patient was counseled on abstinence from smoking. Patient not ready to quit patient clinically stabilized and was ready for discharge FINAL DIAGNOSES: Left facial cutaneous abscess near left ear Status post incision and drainage of the left facial abscess Facial cellulitis extending to upper neck Nicotine dependency DISCHARGE MEDICATIONS: See Medication Reconciliation list. DISCHARGE INSTRUCTIONS: Patient was discharged home. Follow up with primary care provider in one week. I have been assigned to dictate discharge summary for this account. I was not involved in the patient's management. 1918 Rossy Ornelas NP Apr 12, 2019 20:45
== END 2019-04-12 13:26 | disposition home or self-care (01) | DRG 603 ==
LOC: EMR 23:20 → 4E 23:57 → EDBEDREQ 04-05 01:03
PROC: 0H91XZZ Drainage of Face Skin, External Approach (ICD-10-PCS; principal; 2019-04-10 13:00)
DX: L02.01 Cutaneous abscess of face (principal); L03.211 Cellulitis of face; L03.221 Cellulitis of neck; F17.200 Nicotine dependence, unspecified, uncomplicated; H70.92 Unspecified mastoiditis, left ear
CPT/HCPCS: 36415; 70482; 70488; 71045; 80048; 80053; 80202; 82248; 82553; 83605; 83735; 84100; 85025; 85610; 85651; 85730; 86140; 86703; 86850; 86900; 86901; 87040; 87070; 87205; 93005; 94003; 94150; 96365; 99285; J3490